=== PATIENT | female | born 1990 | race Caucasian/White ===

== ENCOUNTER 2018-06-24 18:21 | Emergency (ER) | payer OTHER ==
[2018-06-24 18:51] VITALS: O2SAT 96
--- NOTE | 2018-06-24 19:07 | ERPHSYRPT ---
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 states today she has increased headache more than her normal as well as blurry vision. states she "just doesn't feel well" Triage Nursing Assessment: pt is aox3, pt speech is appropriate, pt pupils are round and equal, pt pupils are minimally reactive to light, pt hand playroom attendant strong and equal, radial pulses strong and equal, pt afebrile, pt skin pale warm dry. Physician History: pt is 27 year old having been [facility] surgery and rad for pineal tumor completed last year , no shunt but prior hydroceph; some N no V disc margins look some indistinct to me on fundoscopic exam, so had best proceed with CT as could be papiledema. Timing/Duration: day(s), gradual onset Quality: fullness, pressure, throbbing Head Pain Location: global Severity of Pain-Max: moderate Severity of Pain-Current: moderate Recent Head Trauma: no recent headache/trauma Modifying Factors: Improves With: position Associated Symptoms: fatigue, nausea/vomiting, weakness Previous symptoms: same symptoms as today Allergies/Adverse Reactions: No Known Drug Allergies Allergy (Unverified 06/24/18 18:51) Hx Tetanus, Diphtheria Vaccination/Date Given: Yes Hx Influenza Vaccination/Date Given: Yes Hx Pneumococcal Vaccination/Date Given: No Immunizations Up to Date: Yes - Review of Systems Constitutional: Fatigue, Malaise, Weakness, No Fever, No Chills Eyes: No Symptoms Ears, Nose, & Throat: No Symptoms Respiratory: No Cough, No Dyspnea Cardiac: No Chest Pain, No Edema, No Syncope Abdominal/Gastrointestinal: Nausea, No Abdominal Pain, No Vomiting, No Diarrhea Genitourinary Symptoms: No Dysuria Musculoskeletal: Myalgias, No Back Pain, No Neck Pain Skin: No Rash Neurological: Headache, No Dizziness, No Focal Weakness, No Sensory Changes Psychological: No Symptoms Endocrine: No Symptoms All Other Systems: Reviewed and Negative - Past Medical History Pertinent Past Medical History: Yes Neurological History: Other Cardiac History: Hypertension Psycho-Social History: Anxiety, Depression Other Medical History: brain tumor. hydrocephalus. papilledema - Past Surgical History Past Surgical History: Yes Other Surgical History: brain biopsy. brain tumor removal - pineal - Social History Smoking Status: Current every day smoker Drug Use: none Patient Lives Alone: No - Female History Hx Last Menstrual Period: 06/02/18 Hx Now: No - Nursing Vital Signs Nursing Vital Signs: Initial Vital Signs Temperature 98.7 F 06/24/18 18:34 Pulse Rate 84 06/24/18 18:34 Respiratory Rate 20 06/24/18 18:34 Blood Pressure 138/91 06/24/18 18:34 O2 Sat by Pulse Oximetry 96 06/24/18 18:34 Pain Scale Pain Intensity 8 - Physical Exam General Appearance: no apparent distress Eye Exam: PERRL/EOMI, other (fundoscopic - disc margins seem indistinct. ) Ears, Nose, Throat Exam: normal ENT inspection, moist mucous membranes Neck Exam: normal inspection, supple, full range of motion, No meningismus Respiratory Exam: normal breath sounds, lungs clear Cardiovascular Exam: regular rate/rhythm, normal heart sounds Gastrointestinal/Abdominal Exam: soft, No tenderness, No distention Back Exam: normal inspection, normal range of motion Mental Status Exam: alert, 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, cooperative materials buyer Exam: normal speech, PERRL, No facial droop Coordination/Gait Exam: normal cerebellar function Motor/Sensory Exam: no motor deficit, no sensory deficit DTR Exam: bicep (R): 2+, bicep (L): 2+, tricep (R): 2+, tricep (L): 2+, knee (R) : 2+, knee (L): 2+, ankle (R): 2+, ankle (L): 2+ Skin Exam: normal color, warm, dry, No rash SpO2 Interpretation: normal SpO2: 96 Oxygen Delivery: Room Air - Course Nursing assessment & vital signs reviewed: Yes - CT Exams Head CT Interpretation: Tele-radiologist Report, No/Intracranial Hemorrhag, Other ( no hydrocephalus - normal ventricular size per rad) Ordered Tests: Active Orders 24 hr Category Date Time Status IV Insertion STAT Care 06/24/18 19:08 Active NPO (ED) STAT Care 06/24/18 19:08 Active HEAD WITHOUT CONTRAST [CT] Stat Exams 06/24/18 19:07 Taken CBC W DIFF Stat Lab 06/24/18 19:44 Completed CMP Stat Lab 06/24/18 19:44 Completed Erythrocyte Sedimentation Rate Stat Lab 06/24/18 19:44 Completed HCG QUALITATIVE,SERUM Stat Lab 06/24/18 19:44 Completed LIPASE Stat Lab 06/24/18 19:44 Completed Lactic Acid Stat Lab 06/24/18 19:37 Completed [place] Screen Stat Lab 06/24/18 19:44 Completed UA W/RFX UR CULTURE Stat Lab 06/24/18 20:24 Completed Medication Summary Generic Name Dose Route Start Last Admin Trade Name Freq PRN Reason Stop Dose Admin Sodium Chloride 1,000 mls @ 100 mls/hr 06/24/18 19:15 06/24/18 19:38 Sodium Chloride 0.9% 1000 Ml IV 07/24/18 19:14 100 mls/hr .Q10H KEELY Administration Discontinued Medications Generic Name Dose Route Start Last Admin Trade Name Freq PRN Reason Stop Dose Admin Lorazepam 0.5 mg 06/24/18 19:17 06/24/18 19:28 Ativan 0.5 Mg PO 06/24/18 19:18 0.5 mg STAT ONE Administration Lorazepam Confirm 06/24/18 19:26 Ativan 1 Mg Administered 06/24/18 19:27 Dose 1 mg .ROUTE .STK-MED ONE Nitroglycerin 0.4 mg 06/24/18 19:11 06/24/18 19:39 Nitrostat 0.4 Mg (Ed) SL 06/24/18 19:12 Not Given STAT ONE Lab/Rad Data: Laboratory Result Diagrams 06/24/18 19:44 06/24/18 19:44 Laboratory Results 06/24/18 06/24/18 06/24/18 Range/Units 20:24 19:45 19:44 WBC (4.0-10.5) K/mm3 RBC (4.1-5.4) M/mm3 Hgb (12.0-16.0) gm/dl Hct (35-47) % MCV (78-100) fl MCH (26-32) pg MCHC (32-36) g/dl RDW (11.5-14.0) % Plt Count (150-450) K/mm3 MPV (6-9.5) fl Gran % (36.0-66.0) % Eos # (Auto) (0-0.5) Absolute Lymphs (auto) (1.0-4.6) Absolute Monos (auto) (0.0-1.3) Lymphocytes % (24.0-44.0) % Monocytes % (0.0-12.0) % Eosinophils % (0.00-5.0) % Basophils % (0.0-0.4) % Absolute Granulocytes (1.4-6.9) Basophils # (0-0.4) ESR (0-20) mm/hr Sodium (137-145) mmol/L Potassium (3.5-5.1) mmol/L Chloride (98-107) mmol/L Carbon Dioxide (22-30) mmol/L Anion Gap (5-15) MEQ/L BUN (7-17) mg/dL Creatinine (0.52-1.04) mg/dL Estimated GFR ML/MIN Glucose (74-106) mg/dL Lactic Acid (0.4-2.0) Calcium (8.4-10.2) mg/dL Total Bilirubin (0.2-1.3) mg/dL AST (14-36) U/L ALT (0-35) U/L Alkaline Phosphatase (38-126) U/L Serum Total Protein (6.3-8.2) g/dL Albumin (3.5-5.0) g/dL Lipase (23-300) U/L Serum , Qual NEGATIVE (Negative) Ur Collection Type VOID Urine Color YELLOW (YELLOW) Urine Appearance CLEAR (CLEAR) Urine pH 5.0 (5-6) Ur Specific Eros 1.020 (1.005-1.025) Urine Protein NEGATIVE (Negative) Urine Ketones NEGATIVE (NEGATIVE) Urine Blood NEGATIVE (0-5) Hermes/ul Urine Nitrite NEGATIVE (NEGATIVE) Urine Bilirubin NEGATIVE (NEGATIVE) Urine Urobilinogen NORMAL (0-1) mg/dL Ur Leukocyte Esterase NEGATIVE (NEGATIVE) Urine Culture Reflexed NO (NO) Urine Glucose NEGATIVE (NEGATIVE) mg/dL Monoscreen NEGATIVE (Negative) Influenza Type A Ag NEGATIVE (NEGATIVE) Influenza Type B Ag NEGATIVE (NEGATIVE) RSV (PCR) NEGATIVE (Negative) Group A Strep Antibody NEGATIVE (NEGATIVE) Specimen Received 06/24/18201906/24/18 06/24/18 06/24/18 Range/Units 19:44 19:44 19:37 WBC 7.3 (4.0-10.5) K/mm3 RBC 4.76 (4.1-5.4) M/mm3 Hgb 14.1 (12.0-16.0) gm/dl Hct 41.6 (35-47) % MCV 87.4 (78-100) fl MCH 29.6 (26-32) pg MCHC 33.9 (32-36) g/dl RDW 14.8 H (11.5-14.0) % Plt Count 315 (150-450) K/mm3 MPV 10.5 H (6-9.5) fl Gran % 58.4 (36.0-66.0) % Eos # (Auto) 0.15 (0-0.5) Absolute Lymphs (auto) 2.41 (1.0-4.6) Absolute Monos (auto) 0.48 (0.0-1.3) Lymphocytes % 32.8 (24.0-44.0) % Monocytes % 6.5 (0.0-12.0) % Eosinophils % 2.0 (0.00-5.0) % Basophils % 0.3 (0.0-0.4) % Absolute Granulocytes 4.28 (1.4-6.9) Basophils # 0.02 (0-0.4) ESR 10 (0-20) mm/hr Sodium 140 (137-145) mmol/L Potassium 4.2 (3.5-5.1) mmol/L Chloride 105 (98-107) mmol/L Carbon Dioxide 25 (22-30) mmol/L Anion Gap 14.3 (5-15) MEQ/L BUN 18 H (7-17) mg/dL Creatinine 0.73 (0.52-1.04) mg/dL Estimated GFR > 60.0 ML/MIN Glucose 94 (74-106) mg/dL Lactic Acid 0.8 (0.4-2.0) Calcium 10.5 H (8.4-10.2) mg/dL Total Bilirubin 0.20 (0.2-1.3) mg/dL AST 17 (14-36) U/L ALT 25 (0-35) U/L Alkaline Phosphatase 103 (38-126) U/L Serum Total Protein 7.6 (6.3-8.2) g/dL Albumin 4.7 (3.5-5.0) g/dL Lipase 129 (23-300) U/L Serum , Qual (Negative) Ur Collection Type Urine Color (YELLOW) Urine Appearance (CLEAR) Urine pH (5-6) Ur Specific Eros (1.005-1.025) Urine Protein (Negative) Urine Ketones (NEGATIVE) Urine Blood (0-5) Hermes/ul Urine Nitrite (NEGATIVE) Urine Bilirubin (NEGATIVE) Urine Urobilinogen (0-1) mg/dL Ur Leukocyte Esterase (NEGATIVE) Urine Culture Reflexed (NO) Urine Glucose (NEGATIVE) mg/dL Monoscreen (Negative) Influenza Type A Ag (NEGATIVE) Influenza Type B Ag (NEGATIVE) RSV (PCR) (Negative) Group A Strep Antibody (NEGATIVE) Specimen Received - Progress Progress: improved, re-examined Air Movement: good Progress Note: 06/24/18 19:14 discussed risk and benefit of CT including rad , alternative imaging/transfer, and pt /family wish to proceed since feeling very ill, they deny but will proceed with shielding 06/24/18 20:57 pt asympt in ER and roxie PO challenge and after discussion wishes f/u neuro as planned this week with MRI and will return meantim if symptoms recur. Blood Culture(s) Obtained: No Antibiotics given: No Counseled pt/family regarding: lab results, diagnosis, need for follow-up, rad results - Departure Time of Disposition: 20:58 Departure Disposition: Home Clinical Impression: headache -post pineal tumor Condition: Good Critical Care Time: No Referrals: ESTHER PROCTOR [NON-STAFF PHY W/O PRIVILEGES] - Instructions: Headache, Adult (DC), Hydrocephalus (DC) Additional Instructions: although the CT did not show hydrocephalus signs , there still could be a very early hydrocephalus trying to develop so we are providing those instructions . return meantime if any symptoms of concern and keep appointments this week as planned with your neuro doctors and MRI.
[2018-06-24] MEDS ORDERED: Nitrostat 0.4 MG (ED) SL ONE (19:11)
[2018-06-24] MEDS ORDERED: Sodium Chloride 0.9% 1000 ML 1,000 ML IV SCH (19:15)
[2018-06-24] MEDS ORDERED: Ativan 0.5 MG PO ONE (19:17)
[2018-06-24] MEDS ORDERED: Sodium Chloride 0.9% 1000 ML 1,000 ML ONE (19:26)
[2018-06-24] MEDS ORDERED: Ativan 1 MG ONE (19:26)
[2018-06-24 19:48] LABS: BASOPHIL % 0.3 % (0.0-0.4); Basophil (Absolute #) 0.02 (0-0.4); Eosinophil (Absolute #) 0.15 (0-0.5); Granulocyte Absolute (ANC) 4.28 (1.4-6.9); Granulocytes % 58.4 % (36.0-66.0); Hematocrit 41.6 % (35-47); Hemoglobin 14.1 gm/dl (12.0-16.0); Lymphocyte (Absolute #) 2.41 (1.0-4.6); Lymphocytes % 32.8 % (24.0-44.0); Mean Cell Volume 87.4 fl (78-100); Mean Corpuscular Hemoglobin 29.6 pg (26-32); Mean Corpuscular Hgb Concent. 33.9 g/dl (32-36); Mean Platelet Volume 10.5 fl (6-9.5); Monocyte (Absolute #) 0.48 (0.0-1.3); Monocytes % 6.5 % (0.0-12.0); Platelet Count 315 K/mm3 (150-450); Red Blood Count 4.76 M/mm3 (4.1-5.4); Red Cell Distribution Width 14.8 % (11.5-14.0); White Blood Count 7.3 K/mm3 (4.0-10.5)
[2018-06-24 20:09] LABS: ALBUMIN 4.7 g/dL (3.5-5.0); ALKALINE PHOSPHATASE 103 U/L (38-126); ANION GAP 14.3 MEQ/L (5-15); BLOOD UREA NITROGEN 18 mg/dL (7-17); CHLORIDE 105 mmol/L (98-107); Calcium 10.5 mg/dL (8.4-10.2); Carbon Dioxide 25 mmol/L (22-30); Creatinine 1 0.73 mg/dL (0.52-1.04); Glucose 94 mg/dL (74-106); LIPASE 129 U/L (23-300); Potassium 4.2 mmol/L (3.5-5.1); SGOT/AST 17 U/L (14-36); SGPT/ALT 25 U/L (0-35); SODIUM 140 mmol/L (137-145); Total Protein 7.6 g/dL (6.3-8.2)
[2018-06-24 20:17] LABS: HCG QUALITATIVE,SERUM NEGATIVE (Negative); Mono Screen NEGATIVE (Negative)
[2018-06-24 20:36] LABS: Erythrocyte Sedimentation Rate 10 mm/hr (0-20)
[2018-06-24 20:37] LABS: INFLUENZA A NEGATIVE (NEGATIVE); INFLUENZA B NEGATIVE (NEGATIVE); RESPIRATORY SYNCTIAL VIRUS NEGATIVE (Negative)
[2018-06-24 20:47] LABS: Appearance CLEAR (CLEAR); Bilirubin NEGATIVE (NEGATIVE); Blood NEGATIVE Ery/ul (0-5); Glucose NEGATIVE (NEGATIVE); Ketones NEGATIVE (NEGATIVE); Leukocyte Esterase NEGATIVE (NEGATIVE); Nitrite NEGATIVE (NEGATIVE); Protein,Urine Dip NEGATIVE (Negative); Urobilinogen NORMAL mg/dL (0-1)
[2018-06-24 21:23] VITALS: BP 124/64; PULSE 70
--- NOTE | 2018-06-24 21:38 | XRAY ---
Indication: Patient feels unwell. History pineal tumor with surgery. Multiple contiguous axial images obtained through the head without contrast. Comparison: None. Small remote appearing lacunar infarcts in the basal ganglia bilaterally and adjacent to the right frontal horn. No acute intracranial hemorrhage, abnormal extra-axial fluid collection, or mass effect. Slightly irregular pineal calcifications presumed previous treated pineal lesion. Bony calvarium intact with left occipital craniotomy. Visualized paranasal sinuses and mastoid air cells are clear. Impression: Small bilateral remote lacunar infarcts and postsurgical as detailed. No acute intracranial abnormalities. Comment: Preliminary interpretation was made by C. No discrepancy. CTDI 68.81
== END 2018-06-24 21:23 | disposition home or self-care (01) ==
LOC: ED 18:21
DX: R51 Headache (principal); R53.83 Other fatigue; R53.1 Weakness; R11.2 Nausea with vomiting, unspecified; Z98.890 Other specified postprocedural states
CPT/HCPCS: 36000; 36415; 70450; 80053; 81002; 83605; 83690; 84703; 85025; 85652; 86308; 87631; 87651; 96360; 96361; 99284; A9270-GY

== ENCOUNTER 2018-07-01 13:34 | Emergency (ER) | payer OTHER ==
[2018-07-01] MEDS ORDERED: MORPHINE SULFATE 4 MG INJ IM ONE (13:55)
[2018-07-01] MEDS ORDERED: Phenergan 25 MG INJ IM ONE (13:55)
--- NOTE | 2018-07-01 14:01 | ERPHSYRPT ---
- History of Present Illness Time Seen by Provider: 07/01/18 13:56 Source: patient Exam Limitations: no limitations Patient Subjective Stated Complaint: pt here for a headache since 1200 today, nausea. pt is getting radiation for brain tumor started radiation in february. having had heacaches for 2 weeks, has called apt last . aug 2017 had 85% % of tumor removed Triage Nursing Assessment: pt alert, resp easy, skin w/d/p. tearful, and states she is going through stress as well , resp easy Physician History: 27-year-old white female arrives with complaint of headache frontal since noon states she is nauseous. No fevers. Patient does state that she has a history of a brain tumor removed in the past she has had radiation treatment last treatment was in February patient was seen last week with the same complaints head CT no acute changes. Patient was seen by her neurologist several days ago. Past medical history includes anxiety, depression, high blood pressure, hydrocephalus, papilledema Past surgical history includes brain biopsy and brain tumor removed Social history positive tobacco use. Timing/Duration: today (today at noon) Severity: moderate Modifying Factors: Improves With: nothing Associated Symptoms: nausea, No vomiting, No abdominal pain, No shortness of breath, No heartburn, No diaphoresis, No cough, No chills, No chest pain, No fever, No headaches, No loss of appetite, No malaise, No rash, No syncope, No seizure, No weakness Allergies/Adverse Reactions: No Known Drug Allergies Allergy (Verified 07/01/18 13:46) Home Medications: No Reportable Medications [No Reported Medications] 07/01/18 [History] Hx Tetanus, Diphtheria Vaccination/Date Given: Yes Hx Influenza Vaccination/Date Given: No Hx Pneumococcal Vaccination/Date Given: No Immunizations Up to Date: Yes - Review of Systems Eyes: No Symptoms Ears, Nose, & Throat: No Symptoms Respiratory: No Cough, No Dyspnea Cardiac: No Chest Pain, No Edema, No Syncope Abdominal/Gastrointestinal: Nausea, No Abdominal Pain, No Vomiting, No Diarrhea , No Constipation, No Hematemesis, No Hematochezia, No Melena, No Dysphagia, No Appetite Changes Genitourinary Symptoms: No Dysuria Musculoskeletal: No Back Pain, No Neck Pain Skin: No Rash Neurological: Headache Psychological: No Symptoms Endocrine: No Symptoms All Other Systems: Reviewed and Negative - Past Medical History Pertinent Past Medical History: Yes Neurological History: Other Cardiac History: Hypertension Psycho-Social History: Anxiety, Depression Other Medical History: brain tumor. hydrocephalus. papilledema - Past Surgical History Past Surgical History: Yes Other Surgical History: brain biopsy. brain tumor removal - pineal - Social History Smoking Status: Current every day smoker Exposure to second hand smoke: Yes Drug Use: none Patient Lives Alone: No - Female History Hx Last Menstrual Period: june 02 Hx Now: No - Nursing Vital Signs Nursing Vital Signs: Initial Vital Signs Temperature 98.2 F 07/01/18 13:38 Pulse Rate 101 H 07/01/18 13:38 Respiratory Rate 16 07/01/18 13:38 Blood Pressure 145/88 07/01/18 13:38 O2 Sat by Pulse Oximetry 98 07/01/18 13:38 Pain Scale Pain Intensity 8 - Physical Exam General Appearance: mild distress Eye Exam: PERRL/EOMI, eyes nml inspection Ears, Nose, Throat Exam: normal ENT inspection, TMs normal, pharynx normal, moist mucous membranes Neck Exam: normal inspection, non-tender, supple, full range of motion Respiratory Exam: normal breath sounds, lungs clear, No respiratory distress Cardiovascular Exam: regular rate/rhythm, normal heart sounds, normal peripheral pulses Gastrointestinal/Abdomen Exam: soft, normal bowel sounds, No tenderness, No mass Back Exam: normal inspection, normal range of motion, No CVA tenderness, No vertebral tenderness Extremity Exam: normal inspection, normal range of motion, pelvis stable Neurologic Exam: alert, 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, cooperative, platform engineer II-XII nml as tested, normal mood/affect, nml cerebellar function, nml station & gait, sensation nml, No motor deficits Skin Exam: normal color, warm, dry, No rash SpO2 Interpretation: normal (98%) SpO2: 98 Oxygen Delivery: Room Air - Course Nursing assessment & vital signs reviewed: Yes Ordered Tests: Active Orders 24 hr Category Date Time Status ARTERIAL BLOOD GASES Stat Lab 07/01/18 13:47 Stop Req Medication Summary Discontinued Medications Generic Name Dose Route Start Last Admin Trade Name Freq PRN Reason Stop Dose Admin Morphine Sulfate 4 mg 07/01/18 13:55 07/01/18 14:12 Morphine Sulfate 4 Mg Inj IM 07/01/18 13:56 4 mg STAT ONE Administration Morphine Sulfate Confirm 08/18/18 14:04 Morphine Sulfate 4 Mg Inj Administered 07/01/18 14:05 Dose 4 mg .ROUTE .STK-MED ONE Promethazine HCl 25 mg 07/01/18 13:55 07/01/18 14:13 Phenergan 25 Mg Inj IM 07/01/18 13:56 25 mg STAT ONE Administration Promethazine HCl Confirm 07/01/18 14:04 Phenergan 25 Mg Inj Administered 07/01/18 14:05 Dose 25 mg .ROUTE .STK-MED ONE - Progress Progress: improved Progress Note: 07/01/18 13:59 27-year-old white female with history of anxiety depression high blood pressure hydrocephaly papilledema who has had a brain tumor in the past which was removed and had had radiation treatment. Patient arrives with a headache since noon she has some nausea no vomiting no fevers. Patient seen here a week ago for headache head CT no acute changes. Patient saw her neurologist several days ago. Patient appears to be stable Will go ahead and give patient morphine and Phenergan. 07/01/18 14:59 Patient is feeling better after morphine 4 mg Phenergan 25 mg IM. Will go ahead and discharge patient. Patient to follow-up with her family doctor and/or her neurologist. - Departure Time of Disposition: 15:00 Departure Disposition: Home Clinical Impression: Headache Qualifiers: Headache type: unspecified Headache chronicity pattern: acute headache Intractability: not intractable Qualified Code(s): R51 - Headache Condition: Fair Critical Care Time: No Referrals: GLORIA PERALTA [Primary Care Provider] - Additional Instructions: Return home. Rest in a dark quiet room. Follow-up with your family doctor or your neurologist. Return for acute distress or for severe symptoms.
[2018-07-01] MEDS ORDERED: MORPHINE SULFATE 4 MG INJ ONE (14:04)
[2018-07-01] MEDS ORDERED: Phenergan 25 MG INJ ONE (14:04)
[2018-07-01 15:06] VITALS: BP 105/62; PULSE 80; O2SAT 96
== END 2018-07-01 15:06 | disposition home or self-care (01) ==
LOC: ED 13:34
DX: R51 Headache (principal); D49.6 Neoplasm of unspecified behavior of brain; F41.8 Other specified anxiety disorders; I10 Essential (primary) hypertension; Z79.899 Other long term (current) drug therapy; Z72.0 Tobacco use
CPT/HCPCS: 96372; 99284; J2270; J2550

== ENCOUNTER 2018-10-24 19:35 | Emergency (ER) | payer OTHER ==
--- NOTE | 2018-10-24 20:17 | ERPHSYRPT ---
- History of Present Illness Time Seen by Provider: 10/24/18 20:00 Source: patient Exam Limitations: no limitations Physician History: 27 y/o white female with no cardiac hx but with h/o migraines presents with a few hour h/o first migraine followed by chest pain. 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 she does have anxiety issues and is under a lot of stress. Timing/Duration: today Quality: sharpness, stabbing (left ) Head Pain Location: global Severity of Pain-Max: moderate Severity of Pain-Current: moderate Recent Head Trauma: no recent headache/trauma, frequent headaches Modifying Factors: Worsens With: cold therapy, exposure to light, immobilization , medication, movement Associated Symptoms: No confusion, No dizziness, No facial pain, No light- headedness, No loss of consciousness, No nausea/vomiting, No sensitive to light , No vision changes Previous symptoms: no prior history (of chest pain) Allergies/Adverse Reactions: No Known Drug Allergies Allergy (Verified 07/01/18 13:46) Home Medications: Alprazolam 0.25 mg [xanAX 0.25 MG] 0.5 mg PO DAILY 10/24/18 [History] Topiramate 25 mg [Topamax 25 MG] 50 mg PO BID 10/24/18 [History] Hx Tetanus, Diphtheria Vaccination/Date Given: Yes Hx Influenza Vaccination/Date Given: No Hx Pneumococcal Vaccination/Date Given: No - Review of Systems Constitutional: No Symptoms, No Fever Eyes: No Symptoms, No Eye Pain, No Photophobia, No Vision Changes, No Double Vision Ears, Nose, & Throat: No Symptoms Respiratory: No Symptoms, No Cough, No Dyspnea, No Stridor Cardiac: No Symptoms, No Chest Pain, No Edema, No Palpitations, No Syncope Abdominal/Gastrointestinal: No Symptoms, No Abdominal Pain, No Nausea, No Vomiting, No Diarrhea Genitourinary Symptoms: No Symptoms, No Dysuria, No Frequency, No Hematuria Musculoskeletal: No Symptoms Skin: No Symptoms Neurological: Headache Psychological: No Symptoms Endocrine: No Symptoms Hematologic/Lymphatic: No Symptoms Immunological/Allergic: No Symptoms All Other Systems: Reviewed and Negative - Past Medical History Pertinent Past Medical History: Yes Neurological History: Other ENT History: No Pertinent History Cardiac History: No Pertinent History, Hypertension Respiratory History: No Pertinent History Endocrine Medical History: No Pertinent History Musculoskeletal History: No Pertinent History GI Medical History: No Pertinent History History: No Pertinent History Psycho-Social History: Anxiety, Depression Female Reproductive Disorders: No Pertinent History Other Medical History: brain tumor. hydrocephalus. papilledema - Past Surgical History Past Surgical History: Yes Neuro Surgical History: No Pertinent History Cardiac: No Pertinent History Respiratory: No Pertinent History Gastrointestinal: No Pertinent History Genitourinary: No Pertinent History Musculoskeletal: No Pertinent History Female Surgical History: No Pertinent History Other Surgical History: brain biopsy. brain tumor removal - pineal - Social History Smoking Status: Current every day smoker Exposure to second hand smoke: Yes Drug Use: none Patient Lives Alone: No - Nursing Vital Signs Nursing Vital Signs: Initial Vital Signs Temperature 98.9 F 10/24/18 19:36 Pulse Rate 82 10/24/18 19:36 Respiratory Rate 20 10/24/18 19:36 Blood Pressure 141/91 10/24/18 19:36 O2 Sat by Pulse Oximetry 99 10/24/18 19:36 Pain Scale Pain Intensity 8 - Physical Exam General Appearance: no apparent distress, alert, anxiety Eye Exam: PERRL/EOMI, eyes nml inspection Ears, Nose, Throat Exam: normal ENT inspection, moist mucous membranes Neck Exam: normal inspection, non-tender, supple, full range of motion Respiratory Exam: normal breath sounds, chest tenderness, airway intact, No lungs clear, No respiratory distress, No accessory muscle use, No rhonchi, No wheezing, No stridor Cardiovascular Exam: regular rate/rhythm, normal heart sounds, normal peripheral pulses Gastrointestinal/Abdominal Exam: soft, normal bowel sounds, No tenderness, No guarding, No rebound Back Exam: normal inspection, normal range of motion, No CVA tenderness, No vertebral tenderness Extremity Exam: normal inspection, normal range of motion, pelvis stable Mental Status Exam: alert, 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, 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 Exam: normal hearing, normal speech, PERRL Coordination/Gait Exam: normal finger to nose, normal gait Motor/Sensory Exam: no motor deficit, no sensory deficit Skin Exam: normal color, warm, dry Lymphatic Exam: No adenopathy SpO2 Interpretation: normal Oxygen Delivery: Room Air - Course Nursing assessment & vital signs reviewed: Yes EKG Interpreted by Me: RATE (78), Sinus Rhythm, NORMAL AXIS, NORMAL INTERVALS, NORMAL QRS, Non-specific ST Changes Ordered Tests: Active Orders 24 hr Category Date Time Status Supervisor Grips STAT Care 10/24/18 20:33 Active EKG-ER Only STAT Care 10/24/18 20:33 Active IV Insertion STAT Care 10/24/18 20:33 Active Pulse Oximetry (ED) STAT Care 10/24/18 20:33 Active BMP Stat Lab 10/24/18 20:55 Completed CBC W DIFF Stat Lab 10/24/18 20:55 Completed TROPONIN Q3H Lab 10/24/18 20:55 Completed TROPONIN Q3H Lab 10/24/18 23:45 Ordered TROPONIN Q3H Lab 10/25/18 02:45 Ordered TROPONIN Q3H Lab 10/25/18 05:45 Ordered TROPONIN Q3H Lab 10/25/18 08:45 Ordered Medication Summary Discontinued Medications Generic Name Dose Route Start Last Admin Trade Name Freq PRN Reason Stop Dose Admin Aspirin 324 mg 10/24/18 20:33 10/24/18 21:03 Baby Aspirin 81 Mg Chew PO 10/24/18 20:34 324 mg STAT ONE Administration Aspirin Confirm 10/24/18 20:50 Baby Aspirin 81 Mg Chew Administered 10/24/18 20:51 Dose 324 mg .ROUTE .STK-MED ONE Morphine Sulfate 4 mg 10/24/18 20:33 10/24/18 21:04 Morphine Sulfate 4 Mg Inj IV 10/24/18 20:34 4 mg STAT ONE Administration Morphine Sulfate Confirm 10/24/18 20:50 Morphine Sulfate 4 Mg Inj Administered 10/24/18 20:51 Dose 4 mg .ROUTE .STK-MED ONE Ondansetron HCl 4 mg 10/24/18 20:33 10/24/18 21:04 Zofran 4 Mg/2 Ml Vial IV 10/24/18 20:34 4 mg STAT ONE Administration Ondansetron HCl Confirm 10/24/18 20:50 Zofran 4 Mg/2 Ml Vial Administered 10/24/18 20:51 Dose 4 mg .ROUTE .STK-MED ONE Lab/Rad Data: Laboratory Result Diagrams 10/24/18 20:55 10/24/18 20:55 Laboratory Results 10/24/18 10/24/18 10/24/18 Range/Units 20:55 20:55 20:55 WBC 7.6 (4.0-10.5) K/mm3 RBC 4.47 (4.1-5.4) M/mm3 Hgb 13.3 (12.0-16.0) gm/dl Hct 40.9 (35-47) % MCV 91.5 (78-100) fl MCH 29.8 (26-32) pg MCHC 32.5 (32-36) g/dl RDW 13.5 (11.5-14.0) % Plt Count 293 (150-450) K/mm3 MPV 9.8 H (6-9.5) fl Gran % 53.4 (36.0-66.0) % Eos # (Auto) 0.16 (0-0.5) Absolute Lymphs (auto) 2.74 (1.0-4.6) Absolute Monos (auto) 0.62 (0.0-1.3) Lymphocytes % 36.0 (24.0-44.0) % Monocytes % 8.1 (0.0-12.0) % Eosinophils % 2.1 (0.00-5.0) % Basophils % 0.4 (0.0-0.4) % Absolute Granulocytes 4.07 (1.4-6.9) Basophils # 0.03 (0-0.4) Sodium 139 (137-145) mmol/L Potassium 4.2 (3.5-5.1) mmol/L Chloride 102 (98-107) mmol/L Carbon Dioxide 28 (22-30) mmol/L Anion Gap 12.8 (5-15) MEQ/L BUN 12 (7-17) mg/dL Creatinine 0.77 (0.52-1.04) mg/dL Estimated GFR > 60.0 ML/MIN Glucose 94 (74-106) mg/dL Calcium 9.7 (8.4-10.2) mg/dL Troponin I < 0.012 (0.000-0.034) ng/mL - Progress Progress: improved Air Movement: good Progress Note: 10/24/18 21:45 denies cp and headache. Counseled pt/family regarding: lab results, diagnosis, need for follow-up - Departure Time of Disposition: 21:45 Departure Disposition: Home Clinical Impression: Migraine, Chest pain Condition: Stable Critical Care Time: No Referrals: GLORIA PERALTA [Primary Care Provider] - Additional Instructions: follow up with primary doctor for further management
[2018-10-24] MEDS ORDERED: BABY ASPIRIN 81 MG CHEW PO ONE (20:33)
[2018-10-24] MEDS ORDERED: MORPHINE SULFATE 4 MG INJ IV ONE (20:33)
[2018-10-24] MEDS ORDERED: Zofran 4 MG/2 ML VIAL IV ONE (20:33)
[2018-10-24] MEDS ORDERED: MORPHINE SULFATE 4 MG INJ ONE (20:50)
[2018-10-24] MEDS ORDERED: BABY ASPIRIN 81 MG CHEW ONE (20:50)
[2018-10-24] MEDS ORDERED: Zofran 4 MG/2 ML VIAL ONE (20:50)
[2018-10-24 21:00] LABS: BASOPHIL % 0.4 % (0.0-0.4); Basophil (Absolute #) 0.03 (0-0.4); Eosinophil % 2.1 % (0.00-5.0); Eosinophil (Absolute #) 0.16 (0-0.5); Granulocyte Absolute (ANC) 4.07 (1.4-6.9); Granulocytes % 53.4 % (36.0-66.0); Hematocrit 40.9 % (35-47); Hemoglobin 13.3 gm/dl (12.0-16.0); Lymphocyte (Absolute #) 2.74 (1.0-4.6); Mean Cell Volume 91.5 fl (78-100); Mean Corpuscular Hemoglobin 29.8 pg (26-32); Mean Corpuscular Hgb Concent. 32.5 g/dl (32-36); Mean Platelet Volume 9.8 fl (6-9.5); Monocyte (Absolute #) 0.62 (0.0-1.3); Monocytes % 8.1 % (0.0-12.0); Platelet Count 293 K/mm3 (150-450); Red Blood Count 4.47 M/mm3 (4.1-5.4); Red Cell Distribution Width 13.5 % (11.5-14.0); White Blood Count 7.6 K/mm3 (4.0-10.5)
[2018-10-24 21:08] VITALS: O2SAT 100
[2018-10-24 21:20] LABS: ANION GAP 12.8 MEQ/L (5-15); BLOOD UREA NITROGEN 12 mg/dL (7-17); CHLORIDE 102 mmol/L (98-107); Calcium 9.7 mg/dL (8.4-10.2); Carbon Dioxide 28 mmol/L (22-30); Creatinine 1 0.77 mg/dL (0.52-1.04); Glucose 94 mg/dL (74-106); Potassium 4.2 mmol/L (3.5-5.1); SODIUM 139 mmol/L (137-145)
[2018-10-24 22:02] VITALS: BP 113/74; PULSE 80
== END 2018-10-24 22:07 | disposition home or self-care (01) ==
LOC: ED 19:35
DX: G43.909 Migraine, unspecified, not intractable, without status migrainosus (principal); R07.9 Chest pain, unspecified; Z79.899 Other long term (current) drug therapy
CPT/HCPCS: 36000; 36415; 80048; 84484; 85025; 93005; 93041; 96374; 99284; J2270; J2405; A9270-GY

== ENCOUNTER 2018-11-07 15:57 | Emergency (ER) | payer OTHER ==
--- NOTE | 2018-11-07 17:21 | ERPHSYRPT ---
- History of Present Illness Time Seen by Provider: 11/07/18 17:10 Source: patient Exam Limitations: no limitations Patient Subjective Stated Complaint: headache with ringing ears, dizzy Triage Nursing Assessment: Pt states that she has had a headache all day and has felt dizzy, hx of brain tumor and brain surgery, hx of seizures, denies seizure today, vitals wnl, PERRL, no difficulties with strength, N&V Physician History: The patient is a 28-year-old female with her parents complaining of severe weekly global headaches for the last 5 or 6 months. Today she also vomited with the headache. She knew it was going to be a severe headache because last night her left arm and hand were numb and tingly. Every time her hand and arm are numb and tingly she has a severe headache. She also has seizures sometimes once a week and sometimes less frequent. She's had 2 brain surgeries one in 2015 and 2017. This headache does not seem to be any different than prior headaches. She is here because she has vomited and the headache frequency is becoming sooner and sooner. She had a head MRI 3 months ago that showed a stable brain. She wants to call her neurologist tomorrow. She denies facial droop or eye problems. Timing/Duration: today, sudden Quality: sharpness Head Pain Location: global Severity of Pain-Max: severe Severity of Pain-Current: severe Recent Head Trauma: frequent headaches Associated Symptoms: nausea/vomiting, No light-headedness, No loss of consciousness, No sinus infection, No sensitive to light, No vision changes, No visual disturbance Previous symptoms: same symptoms as today, recently seen Allergies/Adverse Reactions: morphine Adverse Reaction (Verified 11/07/18 16:35) Home Medications: No Reportable Medications [No Reported Medications] 11/07/18 [History] Hx Tetanus, Diphtheria Vaccination/Date Given: Yes Hx Influenza Vaccination/Date Given: No Hx Pneumococcal Vaccination/Date Given: No - Review of Systems Constitutional: No Fever, No Chills Eyes: No Symptoms Ears, Nose, & Throat: No Symptoms Respiratory: No Cough, No Dyspnea Cardiac: No Chest Pain, No Edema, No Syncope Abdominal/Gastrointestinal: Nausea, Vomiting, No Abdominal Pain, No Diarrhea Genitourinary Symptoms: No Dysuria Musculoskeletal: No Back Pain, No Neck Pain Skin: No Rash Neurological: Headache Psychological: No Symptoms Endocrine: No Symptoms Hematologic/Lymphatic: No Symptoms Immunological/Allergic: No Symptoms All Other Systems: Reviewed and Negative - Past Medical History Pertinent Past Medical History: Yes Neurological History: Other ENT History: No Pertinent History Cardiac History: No Pertinent History, Hypertension Respiratory History: No Pertinent History Endocrine Medical History: No Pertinent History Musculoskeletal History: No Pertinent History GI Medical History: No Pertinent History History: No Pertinent History Psycho-Social History: Anxiety, Depression Female Reproductive Disorders: No Pertinent History Other Medical History: brain tumor. hydrocephalus. papilledema - Past Surgical History Past Surgical History: Yes Neuro Surgical History: No Pertinent History Cardiac: No Pertinent History Respiratory: No Pertinent History Gastrointestinal: No Pertinent History Genitourinary: No Pertinent History Musculoskeletal: No Pertinent History Female Surgical History: No Pertinent History Other Surgical History: brain biopsy. brain tumor removal - pineal - Social History Smoking Status: Current every day smoker How long have you smoked: 12 years Exposure to second hand smoke: Yes Drug Use: none Patient Lives Alone: No - Female History Hx Now: No (tubal) - Nursing Vital Signs Nursing Vital Signs: Initial Vital Signs Temperature 97.8 F 11/07/18 16:18 Pulse Rate 98 H 11/07/18 16:18 Blood Pressure 121/63 11/07/18 16:18 O2 Sat by Pulse Oximetry 98 11/07/18 16:18 Pain Scale Pain Intensity 8 - Physical Exam General Appearance: moderate distress Eye Exam: PERRL/EOMI Ears, Nose, Throat Exam: normal ENT inspection, moist mucous membranes Neck Exam: normal inspection, supple, full range of motion, No meningismus Respiratory Exam: normal breath sounds, lungs clear Cardiovascular Exam: regular rate/rhythm, normal heart sounds Gastrointestinal/Abdominal Exam: soft, No tenderness, No distention Back Exam: normal inspection, normal range of motion Extremity Exam: normal inspection Mental Status Exam: alert, 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, 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 Exam: normal speech, PERRL, tongue midline, No facial droop, No hearing deficit (R), No hearing deficit (L), No tongue deviation to R Coordination/Gait Exam: normal cerebellar function Motor/Sensory Exam: no motor deficit, no sensory deficit Skin Exam: normal color, warm, dry, No rash SpO2 Interpretation: normal SpO2: 98 Oxygen Delivery: Room Air - CT Exams Head CT Interpretation: Tele-radiologist Report (per Dr Oswald), Other (unchanged hyperdense soft tissue and calcifications in pineal region.) Ordered Tests: Active Orders 24 hr Category Date Time Status IV Insertion STAT Care 11/07/18 17:25 Active HEAD WITHOUT CONTRAST [CT] Stat Exams 11/07/18 17:26 Taken BMP Stat Lab 11/07/18 17:55 Completed CBC W DIFF Stat Lab 11/07/18 17:55 Completed Lactic Acid Urgent Lab 11/07/18 17:53 Completed Medication Summary Discontinued Medications Generic Name Dose Route Start Last Admin Trade Name Awais PRN Reason Stop Dose Admin Sodium Chloride 1,000 mls @ 999 mls/hr 11/07/18 17:25 11/07/18 18:11 Sodium Chloride 0.9% 1000 Ml IV 11/07/18 18:25 999 mls/hr .Q1H1M STA Administration Sodium Chloride Confirm 11/07/18 18:06 Sodium Chloride 0.9% 1000 Ml Administered 11/07/18 18:07 Dose 1,000 mls @ ud .ROUTE .STK-MED ONE Nalbuphine HCl 10 mg 11/07/18 17:25 11/07/18 18:11 Nalbuphine Hcl 10 Mg/1 Ml Injection IV 11/07/18 17:26 10 mg STAT STA Administration Nalbuphine HCl Confirm 11/07/18 18:06 Nubain 10 Mg/Ml Administered 11/07/18 18:07 Dose 10 mg .ROUTE .STK-MED ONE Promethazine HCl 25 mg 11/07/18 17:25 11/07/18 18:11 Phenergan 25 Mg Inj IV 11/07/18 17:26 25 mg STAT ONE Administration Promethazine HCl Confirm 11/07/18 18:06 Phenergan 25 Mg Inj Administered 11/07/18 18:07 Dose 25 mg .ROUTE .STK-MED ONE Lab/Rad Data: Laboratory Result Diagrams 11/07/18 17:55 11/07/18 17:55 Laboratory Results 11/07/18 11/07/18 12 Range/Units 17:55 17:55 17:53 WBC 8.0 (4.0-10.5) K/mm3 RBC 4.41 (4.1-5.4) M/mm3 Hgb 13.3 (12.0-16.0) gm/dl Hct 40.3 (35-47) % MCV 91.4 (78-100) fl MCH 30.2 (26-32) pg MCHC 33.0 (32-36) g/dl RDW 13.3 (11.5-14.0) % Plt Count 311 (150-450) K/mm3 MPV 10.6 H (6-9.5) fl Gran % 65.4 (36.0-66.0) % Eos # (Auto) 0.11 (0-0.5) Absolute Lymphs (auto) 2.06 (1.0-4.6) Absolute Monos (auto) 0.56 (0.0-1.3) Lymphocytes % 25.7 (24.0-44.0) % Monocytes % 7.0 (0.0-12.0) % Eosinophils % 1.4 (0.00-5.0) % Basophils % 0.5 (0.0-0.4) % Absolute Granulocytes 5.26 (1.4-6.9) Basophils # 0.04 (0-0.4) Sodium 138 (137-145) mmol/L Potassium 4.3 (3.5-5.1) mmol/L Chloride 101 (98-107) mmol/L Carbon Dioxide 27 (22-30) mmol/L Anion Gap 14.7 (5-15) MEQ/L BUN 16 (7-17) mg/dL Creatinine 1.02 (0.52-1.04) mg/dL Estimated GFR > 60.0 ML/MIN Glucose 88 (74-106) mg/dL Lactic Acid 1.1 (0.4-2.0) Calcium 9.7 (8.4-10.2) mg/dL - Progress Progress: improved Blood Culture(s) Obtained: No Antibiotics given: No Counseled pt/family regarding: lab results, diagnosis, rad results - Departure Time of Disposition: 19:17 Departure Disposition: Home Clinical Impression: Headache, Brain parenchymal calcification Condition: Stable Critical Care Time: No Referrals: GLORIA PERALTA [Primary Care Provider] - Additional Instructions: You have a headache and you also have a calcification near the pineal gland in the brain. The calcification is unchanged from prior study. You were given Toradol 30 mg, Nubain 10 mg, Phenergan 25 mg, and fluids by IV in the ER. Follow-up with your neurologist for reevaluation of the known pineal tumor.
[2018-11-07] MEDS ORDERED: Phenergan 25 MG INJ IV ONE (17:25)
[2018-11-07] MEDS ORDERED: NALBUPHINE HCL 10 MG/1 ML INJECTION IV STA (17:25)
[2018-11-07] MEDS ORDERED: Sodium Chloride 0.9% 1000 ML 1,000 ML IV STA (17:25)
[2018-11-07 17:56] VITALS: PULSE 92
[2018-11-07] MEDS ORDERED: Nubain 10 MG/ML ONE (18:06)
[2018-11-07] MEDS ORDERED: Sodium Chloride 0.9% 1000 ML 1,000 ML ONE (18:06)
[2018-11-07] MEDS ORDERED: Phenergan 25 MG INJ ONE (18:06)
[2018-11-07 18:17] VITALS: BP 111/68
[2018-11-07 18:19] LABS: BASOPHIL % 0.5 % (0.0-0.4); Basophil (Absolute #) 0.04 (0-0.4); Eosinophil % 1.4 % (0.00-5.0); Eosinophil (Absolute #) 0.11 (0-0.5); Granulocyte Absolute (ANC) 5.26 (1.4-6.9); Granulocytes % 65.4 % (36.0-66.0); Hematocrit 40.3 % (35-47); Hemoglobin 13.3 gm/dl (12.0-16.0); Lymphocyte (Absolute #) 2.06 (1.0-4.6); Lymphocytes % 25.7 % (24.0-44.0); Mean Cell Volume 91.4 fl (78-100); Mean Corpuscular Hemoglobin 30.2 pg (26-32); Mean Platelet Volume 10.6 fl (6-9.5); Monocyte (Absolute #) 0.56 (0.0-1.3); Platelet Count 311 K/mm3 (150-450); Red Blood Count 4.41 M/mm3 (4.1-5.4); Red Cell Distribution Width 13.3 % (11.5-14.0)
[2018-11-07 18:39] LABS: ANION GAP 14.7 MEQ/L (5-15); BLOOD UREA NITROGEN 16 mg/dL (7-17); CHLORIDE 101 mmol/L (98-107); Calcium 9.7 mg/dL (8.4-10.2); Carbon Dioxide 27 mmol/L (22-30); Creatinine 1 1.02 mg/dL (0.52-1.04); Glucose 88 mg/dL (74-106); Potassium 4.3 mmol/L (3.5-5.1); SODIUM 138 mmol/L (137-145)
[2018-11-07] MEDS ORDERED: TORAdol 30 mg Injection IV ONE (19:19)
[2018-11-07 19:21] VITALS: O2SAT 98
[2018-11-07] MEDS ORDERED: TORAdol 30 mg Injection ONE (19:29)
--- NOTE | 2018-11-08 08:40 | XRAY ---
Indication: Headache. History of pineal tumor with surgery. Multiple contiguous axial images obtained through the head without contrast. Comparison: June 24, 2018 Stable remote lacunar infarcts in the basal ganglia bilaterally and adjacent to the right frontal horn. 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 Again no acute intracranial hemorrhage, abnormal extra-axial fluid collection, or mass effect. Fourth ventricle is midline without hydrocephalus. Bony calvarium intact again with left occipital craniotomy and underlying encephalomalacia. Also stable small right frontal craniotomy. There is complete opacification of the left frontal sinus with lesser degree right frontal and both ethmoid sinuses. Impression: 1. Stable bilateral remote lacunar infarcts and postsurgical changes as detailed. 2. No acute intracranial abnormalities. 3. Incidental paranasal sinus disease. Comment: Preliminary interpretation was made by VR. No discrepancy. CTDI 50.00
== END 2018-11-07 19:45 | disposition home or self-care (01) ==
LOC: ED 15:57
DX: R51 Headache (principal); R11.2 Nausea with vomiting, unspecified; G93.89 Other specified disorders of brain
CPT/HCPCS: 36000; 36415; 70450; 80048; 83605; 85025; 96360; 96374; 96375; 99284; J1885; J2300; J2550

== ENCOUNTER 2019-04-18 12:47 | Emergency (ER) | payer MEDICAID, OTHER ==
[2019-04-18] MEDS ORDERED: Nubain 10 MG/ML IV ONE (13:14)
[2019-04-18] MEDS ORDERED: Phenergan 25 MG INJ IM ONE ×2 (13:14→14:47)
[2019-04-18] MEDS ORDERED: Sodium Chloride 0.9% 1000 ML 1,000 ML IV SCH (13:15)
--- NOTE | 2019-04-18 13:17 | ERPHSYRPT ---
- History of Present Illness Time Seen by Provider: 04/18/19 13:08 Source: patient Exam Limitations: no limitations Patient Subjective Stated Complaint: Patient states the headach starteed yesterday and continued to worsen Triage Nursing Assessment: Patient ambulated to ER reporting headache, patienet states history of brain tumor and poplateal edema Physician History: 28-year-old white female arrives with complaint of headache photophobia symptoms since yesterday. No fevers. Past medical history includes high blood pressure anxiety depression brain tumor hydrocephalus papilledema. Past surgical history includes brain biopsy brain tumor removed, (pineal). Social history includes tobacco Timing/Duration: yesterday Severity: moderate Modifying Factors: Improves With: nothing Associated Symptoms: headaches, No nausea, No vomiting, No abdominal pain, No heartburn, No diaphoresis, No cough, No chills, No chest pain, No fever, No loss of appetite, No malaise, No rash, No syncope, No seizure, No weakness Allergies/Adverse Reactions: morphine Adverse Reaction (Mild, Verified 04/18/19 13:06) Hives Home Medications: No Reportable Medications [No Reported Medications] 11/07/18 [History] Hx Tetanus, Diphtheria Vaccination/Date Given: Yes Hx Influenza Vaccination/Date Given: Yes Hx Pneumococcal Vaccination/Date Given: Yes Immunizations Up to Date: Yes - Review of Systems Constitutional: No Fever, No Chills Eyes: No Symptoms, Other (pain behind eyes) Ears, Nose, & Throat: No Symptoms Respiratory: No Cough, No Dyspnea Cardiac: No Chest Pain, No Edema, No Syncope Abdominal/Gastrointestinal: No Abdominal Pain, No Nausea, No Vomiting, No Diarrhea Genitourinary Symptoms: No Dysuria Musculoskeletal: No Back Pain, No Neck Pain Skin: No Rash Neurological: Headache Psychological: No Symptoms Endocrine: No Symptoms All Other Systems: Reviewed and Negative - Past Medical History Pertinent Past Medical History: Yes Neurological History: Other ENT History: No Pertinent History Cardiac History: No Pertinent History, Hypertension Respiratory History: No Pertinent History Endocrine Medical History: No Pertinent History Musculoskeletal History: No Pertinent History GI Medical History: No Pertinent History History: No Pertinent History Psycho-Social History: Anxiety, Depression Female Reproductive Disorders: No Pertinent History Other Medical History: brain tumor. hydrocephalus. papilledema - Past Surgical History Past Surgical History: Yes Neuro Surgical History: Other Cardiac: No Pertinent History Respiratory: No Pertinent History Gastrointestinal: No Pertinent History Genitourinary: No Pertinent History Musculoskeletal: No Pertinent History Female Surgical History: No Pertinent History Other Surgical History: brain biopsy. brain tumor removal - pineal - Social History Smoking Status: Current every day smoker How long have you smoked: 10 years Exposure to second hand smoke: Yes Drug Use: none Patient Lives Alone: No - Female History Hx Last Menstrual Period: currently Hx Now: No - Nursing Vital Signs Nursing Vital Signs: Initial Vital Signs Temperature 98.6 F 04/18/19 12:54 Pulse Rate 98 H 04/18/19 12:54 Respiratory Rate 24 04/18/19 12:54 Blood Pressure 126/77 04/18/19 12:54 Pain Scale Pain Intensity 5 - Physical Exam General Appearance: mild distress, alert Eye Exam: PERRL/EOMI, eyes nml inspection Ears, Nose, Throat Exam: normal ENT inspection, TMs normal, pharynx normal, moist mucous membranes Neck Exam: normal inspection, non-tender, supple, full range of motion Respiratory Exam: normal breath sounds, lungs clear, No respiratory distress Cardiovascular Exam: regular rate/rhythm, normal heart sounds, normal peripheral pulses, capillary refill <2 sec Gastrointestinal/Abdomen Exam: soft, normal bowel sounds, No tenderness, No mass Back Exam: normal inspection, normal range of motion, No CVA tenderness, No vertebral tenderness Extremity Exam: normal inspection, normal range of motion, pelvis stable Neurologic Exam: alert, 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, 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, 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, normal mood/affect, nml cerebellar function, nml station & gait, sensation nml, No motor deficits Skin Exam: normal color, warm, dry, No rash SpO2 Interpretation: normal - Course Nursing assessment & vital signs reviewed: Yes Ordered Tests: Active Orders 24 hr Category Date Time Status IV Insertion STAT Care 04/18/19 13:14 Active BMP Stat Lab 04/18/19 13:40 Completed CBC W DIFF Stat Lab 04/18/19 13:40 Completed HCG QUALITATIVE,SERUM Stat Lab 04/18/19 13:40 Completed Medication Summary Generic Name Dose Route Start Last Admin Trade Name Freq PRN Reason Stop Dose Admin Sodium Chloride 1,000 mls @ 100 mls/hr 04/18/19 13:15 04/18/19 13:54 Sodium Chloride 0.9% 1000 Ml IV 05/18/19 13:14 100 mls/hr .Q10H KEELY Administration Discontinued Medications Generic Name Dose Route Start Last Admin Trade Name Awais PRN Reason Stop Dose Admin Ketorolac Tromethamine 30 mg 04/18/19 14:45 04/18/19 14:50 Toradol 30 Mg Injection IM 04/18/19 14:46 Not Given STAT ONE Ketorolac Tromethamine 30 mg 04/18/19 14:50 04/18/19 15:01 Toradol 30 Mg Injection IV 04/18/19 14:51 30 mg STAT ONE Administration Ketorolac Tromethamine Confirm 04/18/19 14:53 Toradol 30 Mg Injection Administered 04/18/19 14:54 Dose 30 mg .ROUTE .STK-MED ONE Nalbuphine HCl 10 mg 04/18/19 13:14 04/18/19 13:55 Nubain 10 Mg/Ml IV 04/18/19 13:15 10 mg STAT ONE Administration Nalbuphine HCl Confirm 04/18/19 13:46 Nubain 10 Mg/Ml Administered 04/18/19 13:47 Dose 10 mg .ROUTE .STK-MED ONE Promethazine HCl 25 mg 04/18/19 13:14 04/18/19 14:04 Phenergan 25 Mg Inj IM 04/18/19 13:15 Not Given STAT ONE Promethazine HCl Confirm 04/18/19 13:47 Phenergan 25 Mg Inj Administered 04/18/19 13:48 Dose 25 mg .ROUTE .STK-MED ONE Promethazine HCl 25 mg 04/18/19 14:47 04/18/19 15:03 Phenergan 25 Mg Inj IM 04/18/19 14:48 25 mg STAT ONE Administration Promethazine HCl Confirm 04/18/19 14:53 Phenergan 25 Mg Inj Administered 04/18/19 14:54 Dose 25 mg .ROUTE .STK-MED ONE Lab/Rad Data: Laboratory Result Diagrams 04/18/19 13:40 04/18/19 13:40 Laboratory Results 04/18/19 04/18/19 04/18/19 Range/Units 13:40 13:40 13:40 WBC 5.5 (4.0-10.5) K/mm3 RBC 4.51 (4.1-5.4) M/mm3 Hgb 13.4 (12.0-16.0) gm/dl Hct 40.4 (35-47) % MCV 89.6 (78-100) fl MCH 29.7 (26-32) pg MCHC 33.2 (32-36) g/dl RDW 14.3 H (11.5-14.0) % Plt Count 258 (150-450) K/mm3 MPV 11.5 H (6-9.5) fl Gran % 60.4 (36.0-66.0) % Eos # (Auto) 0.08 (0-0.5) Absolute Lymphs (auto) 1.60 (1.0-4.6) Absolute Monos (auto) 0.47 (0.0-1.3) Lymphocytes % 29.1 (24.0-44.0) % Monocytes % 8.5 (0.0-12.0) % Eosinophils % 1.5 (0.00-5.0) % Basophils % 0.5 (0.0-0.4) % Absolute Granulocytes 3.32 (1.4-6.9) Basophils # 0.03 (0-0.4) Sodium 140 (137-145) mmol/L Potassium 4.0 (3.5-5.1) mmol/L Chloride 103 (98-107) mmol/L Carbon Dioxide 26 (22-30) mmol/L Anion Gap 15.2 H (5-15) MEQ/L BUN 13 (7-17) mg/dL Creatinine 0.72 (0.52-1.04) mg/dL Estimated GFR > 60.0 ML/MIN Glucose 97 (74-106) mg/dL Calcium 10.0 (8.4-10.2) mg/dL Serum , Qual NEGATIVE (Negative) - Progress Progress: improved Progress Note: 04/18/19 14:45 Patient's labs are normal. Patient's vitals are stable. Patient given 10 mg of IV Nubain she refused initially Phenergan. Recheck patient states her headaches is better but she still has one . I've explained to the patient that Phenergan helps potentiates the Nubain will give the Phenergan IM will also give patient Toradol 30 IV. 04/18/19 15:28 Patient improved after Toradol and Phenergan. Still with headache but wants to go home. Will discharge - Departure Departure Disposition: Home Clinical Impression: Headache Qualifiers: Headache type: unspecified Headache chronicity pattern: unspecified pattern Intractability: not intractable Qualified Code(s): R51 - Headache Condition: Fair Critical Care Time: No Referrals: GLORIA PERALTA [Primary Care Provider] - Additional Instructions: Return home rest in a dark quiet room. Plenty of fluids. Followup with your family . Return for acute distress or for severe symptoms.
[2019-04-18] MEDS ORDERED: Nubain 10 MG/ML ONE (13:46)
[2019-04-18] MEDS ORDERED: Phenergan 25 MG INJ ONE ×2 (13:47→14:53)
[2019-04-18] MEDS ORDERED: Sodium Chloride 0.9% 1000 ML 1,000 ML ONE (13:48)
[2019-04-18 13:56] LABS: BASOPHIL % 0.5 % (0.0-0.4); Basophil (Absolute #) 0.03 (0-0.4); Eosinophil % 1.5 % (0.00-5.0); Eosinophil (Absolute #) 0.08 (0-0.5); Granulocyte Absolute (ANC) 3.32 (1.4-6.9); Granulocytes % 60.4 % (36.0-66.0); Hematocrit 40.4 % (35-47); Hemoglobin 13.4 gm/dl (12.0-16.0); Lymphocytes % 29.1 % (24.0-44.0); Mean Cell Volume 89.6 fl (78-100); Mean Corpuscular Hemoglobin 29.7 pg (26-32); Mean Corpuscular Hgb Concent. 33.2 g/dl (32-36); Mean Platelet Volume 11.5 fl (6-9.5); Monocyte (Absolute #) 0.47 (0.0-1.3); Monocytes % 8.5 % (0.0-12.0); Platelet Count 258 K/mm3 (150-450); Red Blood Count 4.51 M/mm3 (4.1-5.4); Red Cell Distribution Width 14.3 % (11.5-14.0); White Blood Count 5.5 K/mm3 (4.0-10.5)
[2019-04-18 14:04] LABS: ANION GAP 15.2 MEQ/L (5-15); BLOOD UREA NITROGEN 13 mg/dL (7-17); CHLORIDE 103 mmol/L (98-107); Carbon Dioxide 26 mmol/L (22-30); Creatinine 1 0.72 mg/dL (0.52-1.04); Glucose 97 mg/dL (74-106); SODIUM 140 mmol/L (137-145)
[2019-04-18] MEDS ORDERED: TORAdol 30 mg Injection IM ONE (14:45)
[2019-04-18] MEDS ORDERED: TORAdol 30 mg Injection IV ONE (14:50)
[2019-04-18] MEDS ORDERED: TORAdol 30 mg Injection ONE (14:53)
[2019-04-18 15:41] VITALS: BP 106/72; PULSE 70; O2SAT 98
== END 2019-04-18 15:42 | disposition home or self-care (01) ==
LOC: ED 12:47
DX: R51 Headache (principal)
CPT/HCPCS: 36000; 36415; 80048; 81025; 85025; 96360; 96372; 96374; 99284; J1885; J2300; J2550

== ENCOUNTER 2020-04-18 04:09 | Observation (INO) | payer MEDICARE ==
[2020-04-18] MEDS ORDERED: Sodium Chloride 0.9% 1000 ML 1,000 ML IV STA (04:15)
[2020-04-18] MEDS ORDERED: Sodium Chloride 0.9% 1000 ML 1,000 ML ONE ×2 (04:55→07:53)
[2020-04-18 04:58] LABS: Hematocrit 33.8 % (35-47); Hemoglobin 10.9 gm/dl (12.0-16.0); Mean Cell Volume 94.2 fl (78-100); Mean Corpuscular Hemoglobin 30.4 pg (26-32); Mean Corpuscular Hgb Concent. 32.2 g/dl (32-36); Mean Platelet Volume 9.7 fl (7.5-11.0); Platelet Count 252 K/mm3 (150-450); Red Blood Count 3.59 M/mm3 (4.1-5.4); Red Cell Distribution Width 13.9 % (11.5-14.0)
[2020-04-18 05:11] LABS: ALBUMIN 3.9 g/dL (3.5-5.0); ALKALINE PHOSPHATASE 105 U/L (38-126); ANION GAP 10.5 MEQ/L (5-15); BLOOD UREA NITROGEN 12 mg/dL (7-17); CHLORIDE 101 mmol/L (98-107); Calcium 8.6 mg/dL (8.4-10.2); Carbon Dioxide 26 mmol/L (22-30); Glucose 91 mg/dL (74-106); Potassium 3.1 mmol/L (3.5-5.1); SGOT/AST 447 U/L (14-36); SGPT/ALT 311 U/L (0-35); SODIUM 135 mmol/L (137-145)
--- NOTE | 2020-04-18 06:03 | ERPHSYRPT ---
- History of Present Illness Time Seen by Provider: 04/18/20 04:30 Source: patient Exam Limitations: no limitations Patient Subjective Stated Complaint: Patient began having abdominal pain on Tuesday and having really small amounts of "thick" urine. Patient states that pain is over a 10. Triage Nursing Assessment: Patient began having right upper quadrant pain beginning on Tuesday morning that has worsened and is now in bilateral flanks. Patient is alert and oriented, very tearful, and arrived by ambulance on a stretcher. Patient is pale, abdomen is tender, bowel sounds are present x4. Physician History: Patient is a 29-year-old female who presents to our ED with complaints of bilateral flank pain. Pain started yesterday and has been constant. Pain described as an ache that is localized to her flanks. No radiation. Patient describes her urine as being thick. No associated nausea or vomiting. No diarrhea. No fever. Pain is rated 10 out of 10. Patient has a history of a C- section with a subsequent tubal ligation. Patient voices no other complaints at this time. Timing/Duration: yesterday Severity: moderate Modifying Factors: Improves With: nothing Associated Symptoms: nausea, No vomiting, No shortness of breath, No heartburn, No diaphoresis, No fever, No seizure, No weakness Allergies/Adverse Reactions: morphine Adverse Reaction (Mild, Verified 04/18/20 04:50) Hives Home Medications: No Reportable Medications [No Reported Medications] 11/07/18 [History] Hx Tetanus, Diphtheria Vaccination/Date Given: Yes Hx Influenza Vaccination/Date Given: Yes Hx Pneumococcal Vaccination/Date Given: No Immunizations Up to Date: Yes Travel Risk - International Travel Have you traveled outside of the country in past 3 weeks: No Have you or anyone close to you been diagnosed with or: No Do your reside in a community with a known COVID-19 case?: Yes If Yes where:: [place] - Coronavirus Screening Has patient experienced Coronavirus symptoms: No - Review of Systems Constitutional: No Symptoms, No Fever, No Chills Eyes: No Symptoms Ears, Nose, & Throat: No Symptoms Respiratory: No Symptoms, No Cough, No Dyspnea Cardiac: No Symptoms, No Chest Pain, No Edema, No Syncope Abdominal/Gastrointestinal: Other (Pain to bilateral flanks.), No Abdominal Pain , No Nausea, No Vomiting, No Diarrhea Genitourinary Symptoms: No Symptoms, No Dysuria Musculoskeletal: No Symptoms, No Back Pain, No Neck Pain Skin: No Symptoms, No Rash Neurological: No Symptoms, No Dizziness, No Focal Weakness, No Sensory Changes Psychological: No Symptoms Endocrine: No Symptoms Hematologic/Lymphatic: No Symptoms Immunological/Allergic: No Symptoms All Other Systems: Reviewed and Negative - Past Medical History Pertinent Past Medical History: Yes Neurological History: Other ENT History: No Pertinent History Cardiac History: No Pertinent History, Hypertension Respiratory History: No Pertinent History Endocrine Medical History: No Pertinent History Musculoskeletal History: No Pertinent History GI Medical History: No Pertinent History History: No Pertinent History Psycho-Social History: Anxiety, Depression Female Reproductive Disorders: No Pertinent History Other Medical History: brain tumor. hydrocephalus. papilledema - Past Surgical History Past Surgical History: Yes Neuro Surgical History: Other Cardiac: No Pertinent History Respiratory: No Pertinent History Gastrointestinal: No Pertinent History Genitourinary: No Pertinent History Musculoskeletal: No Pertinent History Female Surgical History: Section, Tubal Ligation Other Surgical History: brain biopsy. brain tumor removal - pineal - Social History Smoking Status: Current every day smoker How long have you smoked: 10 years Exposure to second hand smoke: Yes Drug Use: marijuana, methamphetamines Patient Lives Alone: No - Female History Hx Last Menstrual Period: 04/09/2020 Hx Now: No - Nursing Vital Signs Nursing Vital Signs: Initial Vital Signs Temperature 98.9 F 04/18/20 04:21 Pulse Rate 107 H 04/18/20 04:21 Respiratory Rate 22 04/18/20 04:21 Blood Pressure 140/77 04/18/20 04:21 O2 Sat by Pulse Oximetry 100 04/18/20 04:21 Pain Scale Pain Intensity 9 - Physical Exam General Appearance: no apparent distress, alert Eye Exam: PERRL/EOMI, eyes nml inspection Ears, Nose, Throat Exam: normal ENT inspection, TMs normal, pharynx normal, moist mucous membranes Neck Exam: normal inspection, non-tender, supple, full range of motion Respiratory Exam: normal breath sounds, lungs clear, No respiratory distress Cardiovascular Exam: regular rate/rhythm, normal heart sounds, normal peripheral pulses Gastrointestinal/Abdomen Exam: soft, normal bowel sounds, tenderness ( Tenderness to palpation bilateral flank.), No mass Pelvic Exam: not done Rectal Exam: deferred Back Exam: normal inspection, normal range of motion, No CVA tenderness, No vertebral tenderness Extremity Exam: normal inspection, normal range of motion, pelvis stable Neurologic Exam: alert, 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, cooperative, normal mood/affect, nml cerebellar function, nml station & gait, sensation nml, No motor deficits Skin Exam: normal color, warm, dry, No rash Lymphatic Exam: No adenopathy SpO2 Interpretation: normal SpO2: 99 O2 Delivery: Room Air - Course Nursing assessment & vital signs reviewed: Yes - CT Exams Abdomen/Pelvis CT Interpretation: Tele-radiologist Report (CT abdomen pelvis reveals severe gaseous distention of the stomach possible ileus mild collections of air additionally seen in the small bowel and large bowel which may be suggestive of a mild generalized ileus in addition to gastric ileus. The appendix is normal. 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 04/18/20 04:18 Active IV Insertion STAT Care 04/18/20 04:15 Active NG to Suction (Insertion) ROUTINE Care 04/18/20 07:13 Active Pulse Oximetry (ED) STAT Care 04/18/20 04:15 Active ABDOMEN AND PELVIS W/0 CONTRAS [CT] Stat Exams 04/18/20 04:18 Taken BLOOD CULTURE Stat Lab 04/18/20 04:16 Received CBC W DIFF Stat Lab 04/18/20 04:54 Completed CMP Stat Lab 04/18/20 04:54 Completed HCG,QUALITATIVE URINE Stat Lab 04/18/20 06:35 Completed Lactic Acid Stat Lab 04/18/20 05:00 Completed Manual Differential NC Stat Lab 04/18/20 04:54 Completed UA W/RFX UR CULTURE Stat Lab 04/18/20 06:35 Completed Transfer Order Routine Transfer 04/18/20 Ordered Medication Summary Generic Name Dose Route Start Last Admin Trade Name Freq PRN Reason Stop Dose Admin Ceftriaxone Sodium/Dextrose 1 g in 50 mls @ 100 mls/hr 04/18/20 07:02 07:25 Rocephin 1 Gm-D5w 50 Ml Bag IV 04/18/20 07:31 100 mls/hr STAT STA 100 mls/hr Administration Potassium Chloride 20 meq in 100 mls @ 50 mls/hr 04/18/20 07:15 Potassium Chloride 20 Meq In Water 100ml IV 04/18/20 09:14 STAT ONE Discontinued Medications Generic Name Dose Route Start Last Admin Trade Name Awais PRN Reason Stop Dose Admin Sodium Chloride 1,000 mls @ 999 mls/hr 04/18/20 04:15 04/18/20 06:11 Sodium Chloride 0.9% 1000 Ml IV 04/18/20 05:15 Infused .Q1H1M STA Infusion Sodium Chloride Confirm 04/18/20 04:55 Sodium Chloride 0.9% 1000 Ml Administered 04/18/20 04:56 Dose 1,000 mls @ ud .ROUTE .STK-MED ONE Ceftriaxone Sodium/Dextrose Confirm 04/18/20 07:17 Rocephin 1 Gm-D5w 50 Ml Bag Administered 04/18/20 07:18 Dose 1 g in 50 mls @ ud IV .STK-MED ONE Morphine Sulfate 4 mg 04/18/20 07:15 04/18/20 07:23 Morphine Sulfate 4 Mg Inj IV 04/18/20 07:16 4 mg STAT ONE Administration Morphine Sulfate Confirm 04/18/20 07:21 Morphine Sulfate 4 Mg Inj Administered 04/18/20 07:22 Dose 4 mg .ROUTE .STK-MED ONE Potassium Chloride 40 meq 04/18/20 06:59 Klor Con 10 Meq PO 04/18/20 07:00 STAT ONE Potassium Chloride Confirm 04/18/20 07:16 Klor Con 10 Meq Administered 04/18/20 07:17 Dose 10 meq PO .STK-MED ONE Lab/Rad Data: Laboratory Result Diagrams 04/18/20 04:54 04/18/20 04:54 Laboratory Results 04/18/20 04/18/20 04/18/20 Range/Units 06:35 06:35 05:00 WBC (4.0-10.5) K/mm3 RBC (4.1-5.4) M/mm3 Hgb (12.0-16.0) gm/dl Hct (35-47) % MCV (78-100) fl MCH (26-32) pg MCHC (32-36) g/dl RDW (11.5-14.0) % Plt Count (150-450) K/mm3 MPV (7.5-11.0) fl Sodium (137-145) mmol/L Potassium (3.5-5.1) mmol/L Chloride (98-107) mmol/L Carbon Dioxide (22-30) mmol/L Anion Gap (5-15) MEQ/L BUN (7-17) mg/dL Creatinine (0.52-1.04) mg/dL Estimated GFR ML/MIN Glucose (74-106) mg/dL Lactic Acid 1.7 (0.4-2.0) Calcium (8.4-10.2) mg/dL Total Bilirubin (0.2-1.3) mg/dL AST (14-36) U/L ALT (0-35) U/L Alkaline Phosphatase (38-126) U/L Serum Total Protein (6.3-8.2) g/dL Albumin (3.5-5.0) g/dL Urine Color YELLOW (YELLOW) Urine Appearance SLIGHTLY CLOUDY (CLEAR) Urine pH 7.0 (5-6) Ur Specific Jet 1.019 (1.005-1.025) Urine Protein NEGATIVE (Negative) Urine Ketones NEGATIVE (NEGATIVE) Urine Blood NEGATIVE (0-5) Hermes/ul Urine Nitrite NEGATIVE (NEGATIVE) Urine Bilirubin NEGATIVE (NEGATIVE) Urine Urobilinogen 4 (0-1) mg/dL Ur Leukocyte Esterase SMALL (NEGATIVE) Urine WBC (Auto) 6-10 (0-5) /HPF Urine RBC (Auto) 3-5 (0-2) /HPF U Epithel Cells (Auto) RARE (FEW) /HPF Urine Bacteria (Auto) RARE (NEGATIVE) /HPF Urine Mucus (Auto) SLIGHT (NEGATIVE) /HPF Urine Culture Reflexed NO (NO) Urine Glucose NEGATIVE (NEGATIVE) mg/dL Urine HCG, Qual NEGATIVE (Negative) 04/18/20 04/18/20 Range/Units 04:54 04:54 WBC 2.0 L (4.0-10.5) K/mm3 RBC 3.59 L (4.1-5.4) M/mm3 Hgb 10.9 L (12.0-16.0) gm/dl Hct 33.8 L (35-47) % MCV 94.2 (78-100) fl MCH 30.4 (26-32) pg MCHC 32.2 (32-36) g/dl RDW 13.9 (11.5-14.0) % Plt Count 252 (150-450) K/mm3 MPV 9.7 (7.5-11.0) fl Sodium 135 L (137-145) mmol/L Potassium 3.1 L (3.5-5.1) mmol/L Chloride 101 (98-107) mmol/L Carbon Dioxide 26 (22-30) mmol/L Anion Gap 10.5 (5-15) MEQ/L BUN 12 (7-17) mg/dL Creatinine 0.90 (0.52-1.04) mg/dL Estimated GFR > 60.0 ML/MIN Glucose 91 (74-106) mg/dL Lactic Acid (0.4-2.0) Calcium 8.6 (8.4-10.2) mg/dL Total Bilirubin 0.30 (0.2-1.3) mg/dL AST 447 H (14-36) U/L ALT 311 H (0-35) U/L Alkaline Phosphatase 105 (38-126) U/L Serum Total Protein 7.0 (6.3-8.2) g/dL Albumin 3.9 (3.5-5.0) g/dL Urine Color (YELLOW) Urine Appearance (CLEAR) Urine pH (5-6) Ur Specific Jet (1.005-1.025) Urine Protein (Negative) Urine Ketones (NEGATIVE) Urine Blood (0-5) Hermes/ul Urine Nitrite (NEGATIVE) Urine Bilirubin (NEGATIVE) Urine Urobilinogen (0-1) mg/dL Ur Leukocyte Esterase (NEGATIVE) Urine WBC (Auto) (0-5) /HPF Urine RBC (Auto) (0-2) /HPF U Epithel Cells (Auto) (FEW) /HPF Urine Bacteria (Auto) (NEGATIVE) /HPF Urine Mucus (Auto) (NEGATIVE) /HPF Urine Culture Reflexed (NO) Urine Glucose (NEGATIVE) mg/dL Urine HCG, Qual (Negative) - Progress Progress: improved Progress Note: 04/18/20 07:28 Patient reassessed. Symptoms improved. CT reveals severe gaseous distention of the stomach. NG tube placed. Patient is hypokalemic at 3.1. Potassium replaced. Patient is somewhat dehydrated IV fluids administered. UA shows a UTI. Ceftriaxone antibiotic ordered. Dr. Piotr Rodriguez of general surgery consulted. Dr. Rodriguez accepts consultation. Case discussed with Dr. Munguia who accepts admission to observation. Plan of care discussed with patient. She agrees to admission to [facility] for further evaluation and treatment. Discussed with : Lizzie Will see patient in: hospital (observation) Counseled pt/family regarding: lab results, diagnosis, rad results - Departure Departure Disposition: Observation Clinical Impression: Flank pain, Normocytic anemia, Leukopenia, Hypokalemia, Transaminitis, UTI ( urinary tract infection), Abdominal distension (gaseous), Nephrolithiasis Condition: Stable Critical Care Time: No Referrals: GLORIA PERALTA [Primary Care Provider] -
[2020-04-18 06:39] LABS: Appearance SLIGHTLY CLOUDY (CLEAR); Bacteria RARE /HPF (NEGATIVE); Bilirubin NEGATIVE (NEGATIVE); Blood NEGATIVE Ery/ul (0-5); Epithelial Cells RARE /HPF (FEW); Glucose NEGATIVE (NEGATIVE); Ketones NEGATIVE (NEGATIVE); Leukocyte Esterase SMALL (NEGATIVE); Mucus SLIGHT /HPF (NEGATIVE); Nitrite NEGATIVE (NEGATIVE); Protein,Urine Dip NEGATIVE (Negative); Specific Gravity 1.019 (1.005-1.025); Urobilinogen 4 mg/dL (0-1)
[2020-04-18] MEDS ORDERED: Klor Con 10 MEQ PO ONE ×2 (06:59→07:16)
[2020-04-18] MEDS ORDERED: ROCEPHIN 1 Gm-D5w 50 ml Bag** 1 G/50 ML IVPB IV STA (07:02)
[2020-04-18] MEDS ORDERED: MORPHINE SULFATE 4 MG INJ IV ONE (07:15)
[2020-04-18] MEDS ORDERED: POTASSIUM CHLORIDE 20 mEq IN WATER 100ML 20 MEQ/100 ML BAG IV ONE (07:15)
[2020-04-18] MEDS ORDERED: ROCEPHIN 1 Gm-D5w 50 ml Bag** 1 G/50 ML IVPB IV ONE (07:17)
[2020-04-18] MEDS ORDERED: MORPHINE SULFATE 4 MG INJ ONE (07:21)
[2020-04-18] MEDS ORDERED: POTASSIUM CHLORIDE 20 mEq IN WATER 100ML 100 ML IV ONE (07:36)
[2020-04-18] MEDS ORDERED: Sodium Chloride 0.9% 1000 ML 1,000 ML IV SCH (08:45)
--- NOTE | 2020-04-18 09:14 | XRAY ---
Indication: Bilateral back pain. Multiple contiguous axial images obtained through the abdomen and pelvis without contrast using renal stone protocol. Comparison: None Lung bases clear of infiltrate or effusion. Heart is not enlarged. Right lower renal calyx demonstrates 3-4 mm curvilinear calculus. No hydronephrosis, hydroureter, or evidence for obstructive uropathy in either system. Stomach is moderately air distended with minimal food/fluid leveling. Noncontrasted stomach and bowel loops appear nonobstructed. Normal appendix. Mild sigmoid diverticulosis without diverticulitis. No free fluid/air. Gallbladder contracted without gallstones. Remaining liver, gallbladder, pancreas, spleen, adrenal glands, kidneys, ureters, bladder, and aorta are unremarkable for noncontrast exam. Osseous structures intact. No ventral or inguinal hernias. Impression: 1. Nonobstructing right renal micro-calculus. Negative for obstructive uropathy. 2. Air distended stomach either ingestion versus gastric ileus. 3. Sigmoid diverticulosis without diverticulitis. 4. Remaining CT abdomen/pelvis without contrast exam is negative. Comment: Preliminary interpretation was made by [facility]. No critical discrepancy.
[2020-04-18 11:59] LABS: BAND 7 % (0.0-2.0); Eosinophil 2 % (0.00-3.0); Lymphocytes 43 % (24-44); Monocyte 9 % (0.0-12.0); Neutrophils 39 % (36.0-66.0); Nucleated Red Blood Cell 1 %; Total Cells Counted 100
[2020-04-18 12:00] LABS: ANISOCYTOSIS 1+; Platelet Estimate NORMAL (NORMAL)
[2020-04-18] MEDS ORDERED: Zofran 4 MG/2 ML VIAL IV PRN (14:09)
[2020-04-18] MEDS: Sodium Chloride 0.9% 1000 ML 1,000 ML IV SCH (14:48)
[2020-04-18] MEDS: MORPHINE SULFATE 2 MG INJ IV PRN ×2 (14:49→18:06)
--- NOTE | 2020-04-18 16:26 | CONS ---
CONSULT DATE: 04/18/2020 HISTORY OF PRESENT ILLNESS: The patient is a 29 y/o female with significant flank pain. Started on Tuesday. She had small amounts of thick urine she said. Pain filed to improve. She came in the Emergency Department. She had a CT scan. Gallbladder was contracted. No gross stones in the gallbladder. She had elevated AST/ALT and had exposure to fianc that was diagnosed with hepatitis A recently. She did have a history of IV drug use in the past, but denies any known hepatitis herself in the past. PAST SURGICAL HISTORY: She had tubal and in the past. 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 HOME MEDICATIONS: No medications at home on a regular basis. ALLERGIES: SHE SAID SHE HAD HIVES TO MORPHINE REPORTEDLY. FAMILY HISTORY: Negative with regards to this problem, just exposure to her fianc as mentioned above. SOCIAL HISTORY: Smoker. She has used some methamphetamines and marijuana in the past. She has used some IV drugs in the past. She denies alcohol abuse. REVIEW OF SYSTEMS: 14 systems reviewed. No fever currently. No eyes, ears, nose, or throat symptoms. No cough. No chest pain. No abdominal pain according to the patient. She did have some nausea, but no vomiting. She did have the thick urine as she mentioned before. MUSCULOSKELETAL: Just the flank area pain. SKIN: No rash. NEURO: No focal weakness. PSYCH: No obvious psychological or endocrine symptoms or hematologic symptoms in the past. She has not had any blood disorders in the past or immunologic disorders. 14 systems reviewed negative other than noted above. She had had a little bit of high BP. Had been taking medication for and had a little bit of anxiety in the past. CT scan showed nonobstructing right renal microcalculus. No obstructive uropathy. Stomach was distended with gas. Had diverticulosis without diverticulitis. Gallbladder contracted. No evidence of any stones or reaction. WBC 2, Hgb 10.9, platelets 252,000. Total bilirubin 0.3. Alk. Phos. 105. However, AST 447, Alt 311, both of those are elevated. Her potassium was a little bit low at 3.1. UA - Had a few WBC and some bacteria, small amount of leukocyte esterase. PHYSICAL EXAMINATION: She afebrile. BP is 140/77, pulse is around 80 now. GENERAL: HEENT: NECK: CHEST: CVS: ABDOMEN: EXTREMITIES: NEURO: IMPRESSION: This patient was seen for Dr. Rigo Rodriguez who was on-call today when the consult came in. The patient is a 29 y/o female with mainly flank area pain, a little bit more so on the right. She does have nonobstructing microcalculus in her kidney. She has some elevated liver enzymes and personal history of exposure to fianc that had hepatitis A. She is passing a large amount of flatus. She denied any abdominal pain. Denies any nausea or vomiting. She has asked to eat at this time. Do not feel she needs any acute surgical intervention. Whether she has an ileus related to a urinary tract infection or early pyelonephritis without stranding on her kidney on the CT scan or whether she has an ileus related to some acute hepatitis. Either way, she is passing gas. She has no nausea or vomiting or abdominal pain now. No reason for any emergent surgical intervention. The gallbladder does not appear to be distended and does not appear to be the source of her symptoms at this time. As she is asking to eat, feel she can start on liquids and advance to soft diet as tolerated. She has a hepatitis panel that is pending. If that is negative and she has some recurrent nausea or vomiting, could consider upper endoscopy at some point for further work-up, but no emergent surgery necessary at this time. Will follow with you. Thank you for the consult.
[2020-04-18] MEDS ORDERED: PHARMACY DOSING REQUIRED: VANCOMYCIN IV ONE (18:31)
[2020-04-18] MEDS ORDERED: Zosyn 3.375 GM Vial IV ONE (18:54)
[2020-04-18] MEDS ORDERED: Sodium Chloride 0.9% 100 ML IVPB 100 ML IV ONE (18:55)
[2020-04-18] MEDS: Zosyn 3.375 GM Vial 3.375 GM in Sodium Chloride 100ML MINI-BAG PLUS 100 ML IV SCH (18:58)
[2020-04-18 20:49] LABS: Iron 36 ug/dL (37-170); Iron Saturation 10 % (20-39); TIBC 352 ug/dL (265-462)
[2020-04-18] MEDS ORDERED: VANCOMYCIN 1.5 GRAM/300 ML BAG 1.5 GM/300 ML PIGGYBACK IV ONE (21:00)
[2020-04-18] MEDS: TYLENOL 325 MG PO PRN (23:06)
[2020-04-19] MEDS: Zosyn 3.375 GM Vial 3.375 GM in Sodium Chloride 100ML MINI-BAG PLUS 100 ML IV SCH ×6 (00:27→23:36)
[2020-04-19 05:53] LABS: HEPATITIS A IGM Reactive (Non Reactive); HEPATITIS B VIRUS CORE TOT AB Non Reactive (Non Reactive); HEPATITIS C VIRUS ANTIBODY Non Reactive (Non Reactive); Hepatitis B Surface Ab.Quant. <3.50 mIU/mL (0.00-8.49); Hepatitis B Surface Antigen Non Reactive (Non Reactive)
[2020-04-19] MEDS: TYLENOL 325 MG PO PRN ×2 (08:11→18:53)
[2020-04-19 09:36] LABS: ALBUMIN 3.3 g/dL (3.5-5.0); ALKALINE PHOSPHATASE 159 U/L (38-126); ANION GAP 9.7 MEQ/L (5-15); BLOOD UREA NITROGEN 5 mg/dL (7-17); CHLORIDE 105 mmol/L (98-107); Calcium 8.3 mg/dL (8.4-10.2); Carbon Dioxide 23 mmol/L (22-30); Creatinine 1 0.61 mg/dL (0.52-1.04); Glucose 127 mg/dL (74-106); SGOT/AST 735 U/L (14-36); SODIUM 134 mmol/L (137-145); Total Protein 6.4 g/dL (6.3-8.2)
[2020-04-19 09:38] LABS: Hematocrit 36.3 % (35-47); Mean Cell Volume 93.3 fl (78-100); Mean Corpuscular Hemoglobin 30.8 pg (26-32); Mean Corpuscular Hgb Concent. 33.1 g/dl (32-36); Mean Platelet Volume 9.9 fl (7.5-11.0); Platelet Count 232 K/mm3 (150-450); Red Blood Count 3.89 M/mm3 (4.1-5.4); Red Cell Distribution Width 13.7 % (11.5-14.0); White Blood Count 3.1 K/mm3 (4.0-10.5)
[2020-04-19 09:43] LABS: SGPT/ALT 750 U/L (0-35)
[2020-04-19] MEDS ORDERED: VANCOCIN 1 GM VIAL*** 1.5 GM in Sodium Chloride 0.9% 250 ML 250 ML IV SCH (10:00)
--- NOTE | 2020-04-19 11:27 | PCM.NOTE ---
Date and Time: 04/19/20 1122 Subjective Assessment: Patient reports vomiting this AM. She states overall she feels better though. She reports her right sided pain is better today. She declines testing for HIV, syphillis, gonorrhea or chlamydia and states she has been screened for all of these recently. She states she is unemployed. Her mail goes to a [facility] address but she states she has been staying in [place]. Her boyfriend had Hep A she reported to us. She reported to me yesterday that she had been immunized for Hep A but I do not have confirmation of that. - Review of Systems Constitutional: Fever Respiratory: No Symptoms Cardiac: No Symptoms Abdominal/Gastrointestinal: Nausea, Vomiting Genitourinary Symptoms: No Symptoms Objective Exam General Appearance: no apparent distress Neurologic Exam: alert, cooperative, normal mood/affect Skin Exam: normal color, warm, dry Respiratory Exam: normal breath sounds, lungs clear, No crackles/rales, No rhonchi, No wheezing Cardiovascular Exam: regular rate/rhythm, No murmur, No friction rub, No gallop Gastrointestinal/Abdomen Exam: soft, normal bowel sounds, No tenderness, No distention, No mass Extremity Exam: other (no c/c/e) OBJECTIVE DATA Vital Signs: Vital Signs - 24 hr Temp Pulse Resp BP Pulse Ox 04/19/20 08:00 100.4 F 87 17 148/88 99 04/19/20 04:12 99.1 F 83 20 111/62 98 04/18/20 23:53 102.2 F 87 18 160/72 98 04/18/20 19:58 99.6 F 95 H 16 138/67 100 04/18/20 14:17 100.9 F 96 H 16 111/81 96 Pain Assessment - Last Documented Pain Intensity 7 Pain Scale Used 0-10 Pain Scale Intake and Output: Intake & Output 04/17/20 04/18/20 04/19/20 04/20/20 06:59 06:59 06:59 06:59 Intake Total 2067 240 Output Total 1750 200 Balance 317 40 Weight 88.451 kg 95.3 kg Lab Results: Lab Results-Last 24 Hours 04/18/20 04/18/20 04/18/20 Range/Units 04:54 05:10 20:25 WBC (4.0-10.5) K/mm3 RBC (4.1-5.4) M/mm3 Hgb (12.0-16.0) gm/dl Hct (35-47) % MCV (78-100) fl MCH (26-32) pg MCHC (32-36) g/dl RDW (11.5-14.0) % Plt Count (150-450) K/mm3 MPV (7.5-11.0) fl Absolute Granulocytes 0.90 L (1.4-6.9) Segmented Neutrophils 39 (36.0-66.0) % Band Neutrophils 7 H (0.0-2.0) % Lymphocytes (Manual) 43 (24-44) % Monocytes (Manual) 9 (0.0-12.0) % Eosinophils (Manual) 2 (0.00-3.0) % Nucleated RBCs 1 % Platelet Estimate NORMAL (NORMAL) RBC Morphology ABNORMAL Anisocytosis 1+ Sodium (137-145) mmol/L Potassium (3.5-5.1) mmol/L Chloride (98-107) mmol/L Carbon Dioxide (22-30) mmol/L Anion Gap (5-15) MEQ/L BUN (7-17) mg/dL Creatinine (0.52-1.04) mg/dL Estimated GFR ML/MIN Glucose (74-106) mg/dL Calcium (8.4-10.2) mg/dL Magnesium 1.7 (1.6-2.3) mg/dL Iron (37-170) ug/dL TIBC (265-462) ug/dL Iron Saturation (20-39) % Ferritin (6.24-137) ng/mL Total Bilirubin (0.2-1.3) mg/dL AST (14-36) U/L ALT (0-35) U/L Alkaline Phosphatase (38-126) U/L Serum Total Protein (6.3-8.2) g/dL Albumin (3.5-5.0) g/dL Vitamin B12 (239-931) pg/mL Hepatitis A IgM Ab Reactive H (Non Reactive) Hep Bs Antigen Non Reactive (Non Reactive) Hep Bs Antibody, Quant <3.50 (0.00-8.49) mIU/mL Hep B Core Total Ab Non Reactive (Non Reactive) Hepatitis C Antibody Non Reactive (Non Reactive) 04/18/20 04/18/20 04/19/20 Range/Units 20:25 20:25 09:05 WBC 3.1 L (4.0-10.5) K/mm3 RBC 3.89 L (4.1-5.4) M/mm3 Hgb 12.0 (12.0-16.0) gm/dl Hct 36.3 (35-47) % MCV 93.3 (78-100) fl MCH 30.8 (26-32) pg MCHC 33.1 (32-36) g/dl RDW 13.7 (11.5-14.0) % Plt Count 232 (150-450) K/mm3 MPV 9.9 (7.5-11.0) fl Absolute Granulocytes (1.4-6.9) Segmented Neutrophils (36.0-66.0) % Band Neutrophils (0.0-2.0) % Lymphocytes (Manual) (24-44) % Monocytes (Manual) (0.0-12.0) % Eosinophils (Manual) (0.00-3.0) % Nucleated RBCs % Platelet Estimate (NORMAL) RBC Morphology Anisocytosis Sodium (137-145) mmol/L Potassium (3.5-5.1) mmol/L Chloride (98-107) mmol/L Carbon Dioxide (22-30) mmol/L Anion Gap (5-15) MEQ/L BUN (7-17) mg/dL Creatinine (0.52-1.04) mg/dL Estimated GFR ML/MIN Glucose (74-106) mg/dL Calcium (8.4-10.2) mg/dL Magnesium (1.6-2.3) mg/dL Iron 36 L (37-170) ug/dL TIBC 352 (265-462) ug/dL Iron Saturation 10 L (20-39) % Ferritin 96.0 (6.24-137) ng/mL Total Bilirubin (0.2-1.3) mg/dL AST (14-36) U/L ALT (0-35) U/L Alkaline Phosphatase (38-126) U/L Serum Total Protein (6.3-8.2) g/dL Albumin (3.5-5.0) g/dL Vitamin B12 774 (239-931) pg/mL Hepatitis A IgM Ab (Non Reactive) Hep Bs Antigen (Non Reactive) Hep Bs Antibody, Quant (0.00-8.49) mIU/mL Hep B Core Total Ab (Non Reactive) Hepatitis C Antibody (Non Reactive) 04/19/20 Range/Units 09:05 WBC (4.0-10.5) K/mm3 RBC (4.1-5.4) M/mm3 Hgb (12.0-16.0) gm/dl Hct (35-47) % MCV (78-100) fl MCH (26-32) pg MCHC (32-36) g/dl RDW (11.5-14.0) % Plt Count (150-450) K/mm3 MPV (7.5-11.0) fl Absolute Granulocytes (1.4-6.9) Segmented Neutrophils (36.0-66.0) % Band Neutrophils (0.0-2.0) % Lymphocytes (Manual) (24-44) % Monocytes (Manual) (0.0-12.0) % Eosinophils (Manual) (0.00-3.0) % Nucleated RBCs % Platelet Estimate (NORMAL) RBC Morphology Anisocytosis Sodium 134 L (137-145) mmol/L Potassium 4.0 D (3.5-5.1) mmol/L Chloride 105 (98-107) mmol/L Carbon Dioxide 23 (22-30) mmol/L Anion Gap 9.7 (5-15) MEQ/L BUN 5 L (7-17) mg/dL Creatinine 0.61 (0.52-1.04) mg/dL Estimated GFR > 60.0 ML/MIN Glucose 127 H (74-106) mg/dL Calcium 8.3 L (8.4-10.2) mg/dL Magnesium (1.6-2.3) mg/dL Iron (37-170) ug/dL TIBC (265-462) ug/dL Iron Saturation (20-39) % Ferritin (6.24-137) ng/mL Total Bilirubin 0.80 (0.2-1.3) mg/dL AST 735 H (14-36) U/L ALT 750 H (0-35) U/L Alkaline Phosphatase 159 H (38-126) U/L Serum Total Protein 6.4 (6.3-8.2) g/dL Albumin 3.3 L (3.5-5.0) g/dL Vitamin B12 (239-931) pg/mL Hepatitis A IgM Ab (Non Reactive) Hep Bs Antigen (Non Reactive) Hep Bs Antibody, Quant (0.00-8.49) mIU/mL Hep B Core Total Ab (Non Reactive) Hepatitis C Antibody (Non Reactive) Radiology Exams: Radiology Procedures Category Date Time Status ABDOMEN AND PELVIS W/0 CONTRAS [CT] Stat Exams 04/18/20 04:18 Completed Multi-Disciplinary Progress Notes: Multi-Disciplinary Progress Notes 04/19/20 08:44 Pharmacy Note by Marcus Grant Pharmacokinetic dosing service Date: 04/19/2020 Time: 829 Objective: PHARMACY VANCOMYCIN CONSULT Patient: RIKY BERKOWITZ Floor: 107 Age: 29 yo Serum creatinine: 0.9 mg/dL Height: 67 Inches Weight (kg): 95 Diagnosis: NEUTROPENIC FEVER, ABDOMINAL PAIN Relevant medical/social history: Cultures and sensitivities: PENDING Other labs: SR CR 0.9 WBC 2.0 Assessment: IBW (kg): 61.60 Dosing wt(kg): 95 Estimated Creatinine clearance (ml/min): 89.7 CRCL method: Cockcroft and Gault using ibw(default). Drug selected: Vancomycin Loading dose (mg): 0 Vd (liters): 71.2 (factor used: 0.75 L/kg) Josemanuel (hr-1): 0.079 Half life ( hrs): 8.77 Recommended dose: 1500 mg Interval: 12 hrs Infusion time (hrs): 2.0 Predicted peak (mcg/mL): 31.8 Predicted trough (mcg/mL): 14.43 Total body weight is being used for vancomycin dosing. Renal function is stable [ xxxxx ] /unstable [ ] Recommendations: Give Vancomycin 1500 mg q 12 hrs with an expected Cpeak of 31.8 mcg/ml and an expected Ctrough of 14.43 mcg/ml Renal dosing of other antibiotics (review renal dosing of other medications and list guidelines here): PARDEEP Thank you for the consult, will continue to follow. Signature: Paige GRANT Initialized on 04/19/20 08:44 - END OF NOTE Assessment/Plan (1) Hepatitis A infection Current Visit: Yes Status: Acute Assessment & Plan: Continue with IV fluids and supportive care. Will check LFT's daily while in hospital. Report filled out and faxed to [facility]. Patient's address is in [facility] but she states she has been staying in [place]. Code(s): B15.9 - HEPATITIS A WITHOUT HEPATIC COMA (2) Fever Current Visit: Yes Status: Acute Assessment & Plan: Most likely due to Hep A but with her IV drug use and neutropenia. I would like to continue IV antibiotics until blood cultures have been negative for 48 hours. Code(s): R50.9 - FEVER, UNSPECIFIED (3) Neutropenic fever Current Visit: Yes Status: Acute Assessment & Plan: Awaiting differential for ANC today. Her ANC yesterday was below 1000. Continue isolation and IV antibiotics. Code(s): D70.9 - NEUTROPENIA, UNSPECIFIED; R50.81 - FEVER PRESENTING WITH CONDITIONS CLASSIFIED ELSEWHERE (4) Elevated liver function tests Current Visit: Yes Status: Acute Assessment & Plan: Due to active Hep A infection. Code(s): R79.89 - OTHER SPECIFIED ABNORMAL FINDINGS OF BLOOD CHEMISTRY (5) IV drug abuse Current Visit: Yes Status: Acute Code(s): F19.10 - OTHER PSYCHOACTIVE SUBSTANCE ABUSE, UNCOMPLICATED (6) Abdominal discomfort Current Visit: Yes Status: Acute Assessment & Plan: Most likely due to Hep A. Patient states this is better today. Code(s): R10.9 - UNSPECIFIED ABDOMINAL PAIN
[2020-04-19] MEDS: VANCOMYCIN 1.5 GRAM/300 ML BAG 1.5 GM/300 ML PIGGYBACK IV SCH ×2 (11:58→20:32)
[2020-04-19] MEDS: ENOXAPARIN SODIUM SQ SCH (12:05)
[2020-04-19] MEDS: Sodium Chloride 0.9% 1000 ML 1,000 ML IV SCH (19:24)
[2020-04-19] MEDS ORDERED: Zosyn 3.375 GM Vial IV ONE (19:51)
[2020-04-19] MEDS: Protonix 40MG Tablet PO SCH (20:28)
[2020-04-20] MEDS: Zosyn 3.375 GM Vial 3.375 GM in Sodium Chloride 100ML MINI-BAG PLUS 100 ML IV SCH (04:58)
[2020-04-20] MEDS: Sodium Chloride 0.9% 1000 ML 1,000 ML IV SCH (06:27)
[2020-04-20] MEDS: Protonix 40MG Tablet PO SCH (09:06)
[2020-04-20] MEDS: MORPHINE SULFATE 2 MG INJ IV PRN (09:07)
[2020-04-20] MEDS: ENOXAPARIN SODIUM SQ SCH (09:17)
[2020-04-20 09:55] LABS: Hematocrit 36.7 % (35-47); Hemoglobin 12.2 gm/dl (12.0-16.0); Mean Corpuscular Hemoglobin 30.6 pg (26-32); Mean Corpuscular Hgb Concent. 33.2 g/dl (32-36); Mean Platelet Volume 10.3 fl (7.5-11.0); Platelet Count 227 K/mm3 (150-450); Red Blood Count 3.99 M/mm3 (4.1-5.4); Red Cell Distribution Width 13.6 % (11.5-14.0); White Blood Count 2.8 K/mm3 (4.0-10.5)
[2020-04-20] MEDS ORDERED: ROCEPHIN 1 Gm-D5w 50 ml Bag** 1 G/50 ML IVPB IV SCH (10:00)
--- NOTE | 2020-04-20 11:00 | PCM.DCORD ---
- Discharge Discharge Date: 04/20/20 Disposition: Home, Self-Care Condition: Fair Prescriptions: New Omeprazole 20 mg PO DAILY #30 capsule.dr Green [Omnicef 300 mg] 300 mg PO BID #10 capsule Acetaminophen 325 mg [Tylenol 325 mg] 650 mg PO Q4H PRN PRN #0 tablet PRN Reason: Pain And/Or Fever Additional Instructions: Return to ER if unable to keep fluids down or not drinking fluids well, abdominal pain, or any other concerns. Call your primary doctor Tuesday for a follow up appointment. Follow up with: GLORIA PERALTA [Primary Care Provider] - 1 Week
[2020-04-20 11:56] VITALS: BP 120/66; PULSE 89; O2SAT 98
[2020-04-20 15:04] LABS: BAND 15 % (0.0-2.0); Eosinophil 4 % (0.00-3.0); Lymphocytes 24 % (24-44); Monocyte 1 % (0.0-12.0); Neutrophils 56 % (36.0-66.0); Total Cells Counted 100
[2020-04-20 15:09] LABS: Platelet Estimate NORMAL (NORMAL)
--- NOTE | 2020-04-21 14:25 | HP ---
HISTORY OF PRESENT ILLNESS: This is a 29 y/o patient who presented to the Emergency Department. She states that she started having worsening abdominal pain around 3:30 in the morning and right flank pain. She says she always has gas and burps a lot and sometimes that it's worse than other times and that has been going on for a year. She reports a fever to 102.7 at home, but no documented fever when she came in to the Emergency Room. She denies any history of any surgeries to her stomach. She says she has heartburn and that Prilosec doesn't help. She has never had any scopes of her stomach. She reports that she started passing gas and belching a lot and her belly felt better and so she did not want the NG tube as recommended. REVIEW OF SYSTEMS: She has had some rhinorrhea which she reports is due to crying from the pain. No cough. No diarrhea. No constipation. No rashes. She reports her feet have felt swollen. Other Review of Systems as noted in the HPI. 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 She is planning to follow-up with her primary care doctor to have this restarted. PAST SURGICAL HISTORY: Brain surgery X 2, tubal ligation, . SOCIAL HISTORY: She denies alcohol use. She reports she smokes 7-8 cigarettes per day. She denies any herbal supplements. She reports she uses IV drugs and last used 2 days ago, but has decided to quit. She uses marijuana. FAMILY HISTORY: Noncontributory. CURRENT MEDICATIONS: Please see the home medication reconciliation form. ALLERGIES: NKDA. PHYSICAL EXAMINATION: VITAL SIGNS: Temperature current 98.9, heart rate 107, respiratory rate 22, O2 saturation 100% on room air, BP 140/77. GENERAL: The patient is sitting up in bed in no acute distress. HEART: Regular rate and rhythm. No murmurs, gallops, or rubs. CHEST: Clear to auscultation bilaterally. ABDOMEN: Soft, nontender, nondistended with normal bowel sounds. EXTREMITIES: No clubbing, cyanosis, or edema. SKIN: Warm, dry, and intact. LABORATORY DATA: WBC is 2.0 with 39 neutrophils, 7 bands, 43 lymphs, 9 monos, 2 eosinophils. Sodium 135, potassium 3.1, AST 447, ALT 331. UA 6-10 WBC, rare bacteria. She has blood cultures in lab. I have asked them to add a urine culture. She had a CT of her abdomen and pelvis which revealed gaseous distention. Please see the radiologist's report for full details. ASSESSMENT AND PLAN: 1. NEUTROPENIA. We plan to recheck her blood counts in the morning. At time of dictation, the patient has a temperature recorded in her chart of 100.9. Will plan to start broad spectrum antibiotics for a neutropenic fever. 2. ANEMIA. Check iron levels and vitamin B12. 3. HYPOKALEMIA. She had potassium replacement in the Emergency Room. Plan to recheck that in the morning and check her magnesium level now. As for her elevated liver function tests, will make sure a hepatitis panel has been sent off. 4. IV DRUG USE. This does put her at higher risk for bacteremia sepsis, possible endocarditis. 5. ABDOMEN DISTENTION. Etiology is unclear. General surgeons were consulted and we appreciate their input.
--- NOTE | 2020-04-22 16:40 | DS ---
DISCHARGE DIAGNOSIS: 1. ACUTE HEPATITIS A INFECTION. 2. FEVER. 3. NEUTROPENIA. 4. ELEVATED LIVER FUNCTION TEST. 5. IV DRUG USE. 6. FLANK AND ABDOMEN DISCOMFORT. 7. URINARY TRACT INFECTION. 8. HISTORY OF BRAIN TUMOR. DISCHARGE PHYSICAL EXAM: VITALS: Temperature current 100.2, temperature maximum 102.9, heart rate 93, respiratory rate 18, O2 saturation 97% on room air, BP 117/55. GENERAL: The patient was sitting up in bed, alert, in no acute distress. CVS: She had a regular rate and rhythm. No murmurs, gallops, or rubs are appreciated. CHEST: Clear to auscultation bilaterally. ABDOMEN: Soft, nontender, nondistended with normal bowel sounds. EXTREMITIES: No clubbing, cyanosis, or edema. SKIN: Warm, dry, and intact and without jaundice. HOSPITAL COURSE: 1. Acute hepatitis A. She had a hepatitis panel sent and her hepatitis A IgM was elevated. I think this is the cause for the flank pain that she had on admission and the fever that she has been having as well as the elevated liver function tests. A report was made to the [facility] and faxed with confirmation and the patient reports she can follow-up with her primary care provider this week. She will be instructed to return to the Emergency Room if unable to keep fluids down or same symptoms or any other concerns. The patient reports she was able to eat a tenderloin sandwich and keep that down without any vomiting last night and she desires to go home. She has been a difficult patient to draw blood from. Her liver tests were elevated and they need to be followed up as an outpatient and she has also had some neutropenia that is currently stable. She has blood cultures in lab that have been no growth to date. A urine culture did grow bacteria of E. coli and so that she was started on ceftriaxone and will plan to finish a course of cefdinir. 2. Fever. Again, most likely due to hepatitis A. 3. Neutropenia. Stable at this time. Will continue to follow as an outpatient. 4. Elevated liver function tests. Again, will be followed as an outpatient. 5. IV drug use. The patient reports that she plans to quit using drugs. 6. Abdominal discomfort, flank discomfort now resolved. 7. Urinary tract infection. She was given ceftriaxone in the hospital. Will give her 5 more days of cefdinir 300 mg PO bid. 8. History of a brain tumor. I offered to order an MRI of her brain, but she wants to go home today which is Tuesday, there is no MRI offered today, and follow-up with a regular doctor. DISCHARGE MEDICATIONS: Please see the discharge order. DISPOSITION: Patient was discharged to home in fair condition. To follow-up with her primary care doctor.
== END 2020-04-20 11:40 | disposition home or self-care (01) ==
LOC: ED 04:09 → ICU 14:00 → OBSVTOIN 14:20 → INTOOBSV 14:20 → MED SURG 15:50
PROVIDERS: ADMIT Internal Medicine; ATTEND Internal Medicine
DX: B15.9 Hepatitis A without hepatic coma (principal); D70.9 Neutropenia, unspecified; R50.81 Fever presenting with conditions classified elsewhere; D64.9 Anemia, unspecified; F19.90 Other psychoactive substance use, unspecified, uncomplicated; N39.0 Urinary tract infection, site not specified; B96.20 Unspecified Escherichia coli [E. coli] as the cause of diseases classified elsewhere; R14.0 Abdominal distension (gaseous); E87.6 Hypokalemia; R94.5 Abnormal results of liver function studies; R10.9 Unspecified abdominal pain; N20.0 Calculus of kidney; R11.2 Nausea with vomiting, unspecified; Z79.899 Other long term (current) drug therapy; Z86.69 Personal history of other diseases of the nervous system and sense organs
CPT/HCPCS: 36000; 36415; 74176; 80053; 80074; 81001; 82607; 82728; 83540; 83550; 83605; 83735; 84703; 85025; 87040; 87077; 87086; 87186; 93041; 93268; 94760; 96360; 96361; 96365; 96367; 96374; 99285; G0378; J0696; J2270; J2405; J3480; A9270-GY; J3370

== ENCOUNTER 2020-06-03 05:23 | Emergency (ER) | payer MEDICARE ==
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
[2020-06-03] MEDS ORDERED: Zofran 4 MG/2 ML VIAL IV ONE (05:45)
[2020-06-03] MEDS ORDERED: Sodium Chloride 0.9% 1000 ML 1,000 ML IV SCH (05:45)
[2020-06-03] MEDS ORDERED: Sodium Chloride 0.9% 1000 ML 1,000 ML ONE (06:09)
[2020-06-03] MEDS ORDERED: Zofran 4 MG/2 ML VIAL ONE (06:09)
[2020-06-03 07:43] LABS: Absolute Neutrophil Ct (ANC) 9.58 (1.4-6.9); BASOPHIL % 0.2 % (0.0-0.4); Basophil (Absolute #) 0.02 (0-0.4); Eosinophil % 0.3 % (0.00-5.0); Eosinophil (Absolute #) 0.04 (0-0.5); Hematocrit 39.4 % (35-47); Hemoglobin 12.9 gm/dl (12.0-16.0); Lymphocyte (Absolute #) 1.59 (1.0-4.6); Lymphocytes % 13.3 % (24.0-44.0); Mean Cell Volume 92.5 fl (78-100); Mean Corpuscular Hemoglobin 30.3 pg (26-32); Mean Corpuscular Hgb Concent. 32.7 g/dl (32-36); Mean Platelet Volume 9.9 fl (7.5-11.0); Monocyte (Absolute #) 0.76 (0.0-1.3); Monocytes % 6.3 % (0.0-12.0); Neutrophil % 79.9 % (36.0-66.0); Platelet Count 303 K/mm3 (150-450); Red Blood Count 4.26 M/mm3 (4.1-5.4); Red Cell Distribution Width 13.8 % (11.5-14.0)
[2020-06-03 08:12] LABS: ALBUMIN 4.1 g/dL (3.5-5.0); BLOOD UREA NITROGEN 11 mg/dL (7-17); CHLORIDE 108 mmol/L (98-107); Calcium 9.1 mg/dL (8.4-10.2); Carbon Dioxide 24 mmol/L (22-30); Creatinine 1 0.82 mg/dL (0.52-1.04); Glucose 111 mg/dL (74-106); Potassium 3.9 mmol/L (3.5-5.1); SODIUM 137 mmol/L (137-145); Total Protein 7.4 g/dL (6.3-8.2)
[2020-06-03 08:13] LABS: ALKALINE PHOSPHATASE 90 U/L (38-126); ANION GAP 8.9 MEQ/L (5-15); ETHYL ALCOHOL < 10 mg/dL (0-10); SGOT/AST 27 U/L (14-36); SGPT/ALT 28 U/L (0-35)
[2020-06-03 08:15] LABS: Amourphous Crystal MODERATE /HPF (NEGATIVE); Appearance CLOUDY (CLEAR); Bacteria FEW /HPF (NEGATIVE); Bilirubin NEGATIVE (NEGATIVE); Blood NEGATIVE Ery/ul (0-5); Epithelial Cells FEW /HPF (FEW); Glucose NEGATIVE (NEGATIVE); Hyaline Casts 0-2 /LPF (0-2); Ketones NEGATIVE (NEGATIVE); Leukocyte Esterase SMALL (NEGATIVE); Mucus SLIGHT /HPF (NEGATIVE); Nitrite NEGATIVE (NEGATIVE); Protein,Urine Dip 30 (Negative); Specific Gravity 1.021 (1.005-1.025); Urobilinogen 2 mg/dL (0-1)
[2020-06-03 08:46] LABS: Amphetamine,Urine POSITIVE (NEGATIVE); Barbiturate,Urine NEGATIVE (NEGATIVE); Benzodiazepine,Urine NEGATIVE (NEGATIVE); Cocaine,Urine NEGATIVE (NEGATIVE)
[2020-06-03 08:47] LABS: Methadone,Urine NEGATIVE (NEGATIVE); Opiate,Urine NEGATIVE (NEGATIVE); PCP,Urine NEGATIVE (NEGATIVE); THC,Urine NEGATIVE (NEGATIVE)
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
[2020-06-03 09:35] VITALS: BP 110/76; PULSE 110; O2SAT 100
== END 2020-06-03 09:10 | disposition home or self-care (01) ==
LOC: ED 05:23
DX: T14.8XXA Other injury of unspecified body region, initial encounter (principal); V89.0XXA Person injured in unspecified motor-vehicle accident, nontraffic, initial encounter; Y93.9 Activity, unspecified; Y92.9 Unspecified place or not applicable; S40.811A Abrasion of right upper arm, initial encounter; S70.212A Abrasion, left hip, initial encounter; S50.811A Abrasion of right forearm, initial encounter; N39.0 Urinary tract infection, site not specified; M25.552 Pain in left hip; S20.419A Abrasion of unspecified back wall of thorax, initial encounter; Z03.89 Encounter for observation for other suspected diseases and conditions ruled out
CPT/HCPCS: 36415; 70450; 72125; 72128; 73060; 73090; 74176; 80053; 80307; 81001; 81025; 85025; 87086; 93005; 96374; 99285; G0480; J2405

== ENCOUNTER 2021-07-16 22:30 | Emergency (ER) | payer MEDICARE ==
[2021-07-16] MEDS ORDERED: Pepcid 20 MG VIAL IV ONE (23:01)
[2021-07-16] MEDS ORDERED: solu-MEDROL 125 MG, Sterile H2O 10 ml 2 ML IV ONE ×2 (23:01)
[2021-07-16] MEDS ORDERED: BENADRYL 50 MG/ML IV ONE (23:01)
[2021-07-16] MEDS ORDERED: Pepcid 20 MG PO ONE (23:43)
[2021-07-16] MEDS ORDERED: BENADRYL 50 MG/ML IM ONE (23:43)
[2021-07-16] MEDS ORDERED: solu-MEDROL 125 MG, Sterile H2O 10 ml 2 ML IM ONE ×2 (23:44)
[2021-07-16] MEDS ORDERED: BENADRYL 50 MG/ML ONE (23:46)
[2021-07-16] MEDS ORDERED: Pepcid 20 MG ONE (23:46)
[2021-07-16] MEDS ORDERED: solu-MEDROL ONE (23:46)
[2021-07-16] MEDS ORDERED: Sterile H2O 10 ml IJ ONE (23:46)
[2021-07-17 03:13] VITALS: O2SAT 98
--- NOTE | 2021-07-17 03:23 | ERPHSYRPT ---
- History of Present Illness Time Seen by Provider: 07/16/21 22:55 Source: patient Exam Limitations: no limitations Patient Subjective Stated Complaint: pt states she opened an advil liquigel to put directly on her tooth that has been having pain in. states after approx 10 min she started having swelling in her lip and tongue on the rt side. Triage Nursing Assessment: pt alert and oriented, answers questions approp. pt ambulatory with steady gait noted. pt tearful at times. respirations nonlabored with lungs cta. swelling noted to rt upper and lower lip and some swelling ntoed to rt side of tongue. Physician History: Patient is a 30-year-old female presents to our ED for evaluation of swelling to right upper lip and right lower lip. Minimal swelling to the right lateral aspect of her tongue. Patient has been experiencing some dental pain. She currently has an appointment scheduled for dentist. Patient applied Advil liquid gel directly to her involved tooth. Approximately an hour later she observed swelling. No difficulty swallowing. No difficulty breathing. No wheezing. Patient has isolated right upper and right lower lip swelling. There is very minimal swelling to her right lateral tongue. No other symptoms. Patient only reports allergy to MRI dye. Symptoms are mild to moderate in intensity. No associated chest pain or shortness of breath. No nausea vomiting or diaphoresis. No rash. No pruritus. Patient voices no other complaints or concerns at this time. Timing/Duration: today Severity: moderate Modifying Factors: Improves With: nothing Associated Symptoms: denies symptoms Allergies/Adverse Reactions: ibuprofen [From Advil] Adverse Reaction (Severe, Verified 07/17/21 03:27) Swelling of Tongue and Lips mri dye Allergy (Intermediate, Uncoded 07/16/21 23:03) Hives Hx Tetanus, Diphtheria Vaccination/Date Given: Yes Hx Influenza Vaccination/Date Given: No Hx Pneumococcal Vaccination/Date Given: No Immunizations Up to Date: Yes Travel Risk - International Travel Have you traveled outside of the country in past 3 weeks: No - Coronavirus Screening Are you exhibiting any of the following symptoms?: No Close contact with a COVID-19 positive Pt in past 14-21 Days: No - Vaccine Status Have you recieved a Covid-19 vaccination: No - Review of Systems Constitutional: No Symptoms, No Fever, No Chills Eyes: No Symptoms Ears, Nose, & Throat: No Symptoms Respiratory: No Symptoms, No Cough, No Dyspnea Cardiac: No Symptoms, No Chest Pain, No Edema, No Syncope Abdominal/Gastrointestinal: No Symptoms, No Abdominal Pain, No Nausea, No Vomiting, No Diarrhea Genitourinary Symptoms: No Symptoms, No Dysuria Musculoskeletal: No Symptoms, No Back Pain, No Neck Pain Skin: No Symptoms, No Rash Neurological: No Symptoms, No Dizziness, No Focal Weakness, No Sensory Changes Psychological: No Symptoms Endocrine: No Symptoms Hematologic/Lymphatic: No Symptoms Immunological/Allergic: No Symptoms All Other Systems: Reviewed and Negative - Past Medical History Pertinent Past Medical History: Yes Neurological History: Other ENT History: No Pertinent History Cardiac History: No Pertinent History, Hypertension Respiratory History: No Pertinent History Endocrine Medical History: No Pertinent History Musculoskeletal History: No Pertinent History GI Medical History: No Pertinent History History: No Pertinent History Psycho-Social History: Anxiety, Depression Female Reproductive Disorders: No Pertinent History Other Medical History: brain tumor. hydrocephalus. papilledema - Past Surgical History Past Surgical History: Yes Neuro Surgical History: Other Cardiac: No Pertinent History Respiratory: No Pertinent History Gastrointestinal: No Pertinent History Genitourinary: No Pertinent History Musculoskeletal: No Pertinent History Female Surgical History: Section, Tubal Ligation Other Surgical History: brain biopsy 2016. brain tumor removal - pineal 2017 - Social History Smoking Status: Current every day smoker How long have you smoked: 10 years Exposure to second hand smoke: Yes Drug Use: none Patient Lives Alone: No - Female History Hx Last Menstrual Period: 05/23 Hx Now: No - Nursing Vital Signs Nursing Vital Signs: Initial Vital Signs Temperature 97.8 F 07/16/21 22:47 Pulse Rate 106 H 07/16/21 22:47 Respiratory Rate 18 07/16/21 22:47 Blood Pressure 123/92 07/16/21 22:47 O2 Sat by Pulse Oximetry 99 07/16/21 22:47 Pain Scale Pain Intensity 0 - Physical Exam General Appearance: no apparent distress, alert, other (Swelling to right upper lip and right lower lip. Right lateral aspect of tongue. Oropharynx clear. No intraoral lesions. Uvula at midline.) Eye Exam: PERRL/EOMI, eyes nml inspection Ears, Nose, Throat Exam: normal ENT inspection, TMs normal, pharynx normal, moist mucous membranes, No pharyngeal erythema Neck Exam: normal inspection, non-tender, supple, full range of motion Respiratory Exam: normal breath sounds, lungs clear, airway intact, No respiratory distress Cardiovascular Exam: regular rate/rhythm, normal heart sounds, normal peripheral pulses Gastrointestinal/Abdomen Exam: soft, normal bowel sounds, No tenderness, No mass Back Exam: normal inspection, normal range of motion, No CVA tenderness, No vertebral tenderness Extremity Exam: normal inspection, normal range of motion, pelvis stable Neurologic Exam: alert, 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, cooperative, normal mood/affect, nml cerebellar function, nml station & gait, sensation nml, No motor deficits Skin Exam: normal color, warm, dry, No rash Lymphatic Exam: No adenopathy SpO2 Interpretation: normal SpO2: 98 O2 Delivery: Room Air - Course Nursing assessment & vital signs reviewed: Yes Ordered Tests: Active Orders 24 hr Category Date Time Status Pulse Oximetry (ED) STAT Care 07/16/21 23:01 Active Medication Summary Discontinued Medications Generic Name Dose Route Start Last Admin Trade Name Freq PRN Reason Stop Dose Admin Methylprednisolone Sodium 0 mg 07/16/21 23:01 Succinate 125 mg/ Sterile IV 07/16/21 23:02 Water 2 ml STAT ONE Methylprednisolone Sodium 0 mg 07/16/21 23:44 07/16/21 23:51 Succinate 125 mg/ Sterile IM 07/16/21 23:45 125 mg Water 2 ml STAT ONE Administration Diphenhydramine HCl 50 mg 07/16/21 23:01 Benadryl 50 Mg/Ml IV 07/16/21 23:02 STAT ONE Diphenhydramine HCl 50 mg 07/16/21 23:43 07/16/21 23:52 Benadryl 50 Mg/Ml IM 07/16/21 23:44 50 mg STAT ONE Administration Diphenhydramine HCl Confirm 07/16/21 23:46 Benadryl 50 Mg/Ml Administered 07/16/21 23:47 Dose 50 mg .ROUTE .STK-MED ONE Famotidine 20 mg 07/16/21 23:01 Pepcid 20 Mg Vial IV 07/16/21 23:02 STAT ONE Famotidine 20 mg 07/16/21 23:43 07/16/21 23:52 Pepcid 20 Mg PO 07/16/21 23:44 20 mg STAT ONE Administration Famotidine Confirm 07/16/21 23:46 Pepcid 20 Mg Administered 07/16/21 23:47 Dose 20 mg .ROUTE .STK-MED ONE Methylprednisolone Sodium Succinate Confirm 07/16/21 23:46 Solu-Medrol Administered 07/16/21 23:47 Dose 125 mg .ROUTE .STK-MED ONE Sterile Water Confirm 07/16/21 23:46 Sterile H2o 10 Ml Administered 07/16/21 23:47 Dose 10 ml IJ .STK-MED ONE - Progress Progress: improved Progress Note: Patient observed for approximately 5 hours. Lip swelling significantly improved. Patient resting comfortably. Tongue swelling resolved. Oral airway patent. No intraoral lesions. Lungs are clear. Vital stable. We will send patient home with prescription for EpiPen, Pepcid, and prednisone. She will take [id number] Benadryl as needed for itching. Patient requesting discharge. She voices no other complaints or concerns at this time. We updated patient's allergy profile to include ibuprofen. Patient agrees to follow-up with her primary care doctor within 48 hours for reevaluation. Portions of this note were created with voice recognition technology. There may be grammatical, spelling, punctuation or sound alike errors 07/17/21 03:30 Counseled pt/family regarding: diagnosis, need for follow-up - Departure Departure Disposition: Home Clinical Impression: Swollen lip, Angioedema Condition: Stable Critical Care Time: No Referrals: RANDI PADILLA JR [Primary Care Provider] - Additional Instructions: Discharge/Care Plan RIKY BERKOWITZ was seen on 07/17/21 in the Emergency Room. The patient was counseled regarding Diagnosis,Lab results, Imaging studies, need for follow up and when to return to the Emergency Room. Prescriptions given: Discharge Note I have spoken with the patient and/or caregivers. I have explained the patient's condition, diagnosis and treatment plan based on the information available to me at this time. I have answered the patient's and/or caregiver's questions and addressed any concerns. The patient and/or caregivers have as good understanding of the patient's diagnosis, condition and treatment plan as can be expected at this point. The vital signs have been stable. The patient's condition is stable and appropriate for discharge from the emergency department. The patient will pursue further outpatient evaluation with the primary care physician or other designated or consulting physician as outlined in the d ischarge instructions. The patient and/or caregivers are agreeable to this plan of care and follow-up instructions have been explained in detail. The patient and/or caregivers have received these instruction. The patient/and or caregivers are aware that any significant change in condition or worsening of symptoms should prompt an immediate return to this or the closest emergency department or call 911. Prescriptions: Diphenhydramine HCl 25 mg [Benadryl 25 mg Capsule] 25 mg PO Q6H PRN PRN 5 Days #20 PRN Reason: Itching Epinephrine [Auvi-Q] 0.3 mg IJ DAILY PRN PRN 1 Days #2 dose PRN Reason: Allergies Prednisone 10 mg [Deltasone 10 mg] 40 mg PO DAILY 3 Days #12 tablet Famotidine 20 mg [Pepcid 20 MG] 20 mg PO BID 7 Days #14 tablet
[2021-07-17 03:26] VITALS: BP 131/89; PULSE 102
[2021-07-17] MEDS ORDERED: NORCO 5/325 MG ONE (03:31)
[2021-07-17] MEDS ORDERED: NORCO 5/325 MG PO ONE (03:47)
== END 2021-07-17 03:55 | disposition home or self-care (01) ==
LOC: ED 22:30
DX: T78.3XXA Angioneurotic edema, initial encounter (principal); R22.9 Localized swelling, mass and lump, unspecified
CPT/HCPCS: 94760; 96372; 99284; J1200; J2930; A9270-GY

== ENCOUNTER 2021-08-02 13:24 | Emergency (ER) | payer MEDICARE ==
[2021-08-02] MEDS ORDERED: Augmentin 875-125 Tablet PO ONE (13:50)
--- NOTE | 2021-08-02 13:55 | ERPHSYRPT ---
- History of Present Illness Time Seen by Provider: 08/02/21 13:29 Source: patient Exam Limitations: no limitations Patient Subjective Stated Complaint: Pt has a toothache that is causing a headache, tooth is the top third from the back on the left Triage Nursing Assessment: Pt was brought to the ER by her cousin, hypertensive, rates pain as 8-9/10, tooth pain, head ache, unable to sleep, states that she is seeing the dentist this week, denies any other issues at this time Physician History: 30 years old female with history of dental caries presented in the ER with chief complaint of left upper premolar and molar area pain and gingival swelling started last night and gradually worsening, moderate to severe sharp throbbing pain, increased sensitivity to hot and cold. No facial swelling Timing/Duration: gradual onset, yesterday Severity: moderate ENT Location: dental Prearrival Treatment: no prearrival treatment Associated Symptoms: tooth pain Allergies/Adverse Reactions: ibuprofen [From Advil] Adverse Reaction (Severe, Verified 07/17/21 03:27) Swelling of Tongue and Lips mri dye Allergy (Intermediate, Uncoded 07/16/21 23:03) Hives Hx Tetanus, Diphtheria Vaccination/Date Given: Yes Hx Influenza Vaccination/Date Given: No Hx Pneumococcal Vaccination/Date Given: No Travel Risk - International Travel Have you traveled outside of the country in past 3 weeks: No - Coronavirus Screening Are you exhibiting any of the following symptoms?: No Symptoms: Shortness of Breath - Vaccine Status Have you recieved a Covid-19 vaccination: No - Review of Systems Constitutional: No Symptoms Eyes: No Symptoms Ears, Nose, & Throat: Mouth Swelling Respiratory: No Symptoms Cardiac: No Symptoms Abdominal/Gastrointestinal: No Symptoms Musculoskeletal: No Symptoms Neurological: No Symptoms Hematologic/Lymphatic: No Symptoms Immunological/Allergic: No Symptoms - Past Medical History Pertinent Past Medical History: Yes Neurological History: Other ENT History: No Pertinent History Cardiac History: No Pertinent History, Hypertension Respiratory History: No Pertinent History Endocrine Medical History: No Pertinent History Musculoskeletal History: No Pertinent History GI Medical History: No Pertinent History History: No Pertinent History Psycho-Social History: Anxiety, Depression Female Reproductive Disorders: No Pertinent History Other Medical History: brain tumor. hydrocephalus. papilledema - Past Surgical History Past Surgical History: Yes Neuro Surgical History: Other Cardiac: No Pertinent History Respiratory: No Pertinent History Gastrointestinal: No Pertinent History Genitourinary: No Pertinent History Musculoskeletal: No Pertinent History Female Surgical History: Section, Tubal Ligation Other Surgical History: brain biopsy 2016. brain tumor removal - pineal 2017 - Social History Smoking Status: Current every day smoker How long have you smoked: 10 years Exposure to second hand smoke: Yes Drug Use: none Patient Lives Alone: Yes - Female History Hx Last Menstrual Period: 07/23/2021 Hx Now: No - Nursing Vital Signs Nursing Vital Signs: Initial Vital Signs Temperature 97.7 F 08/02/21 13:31 Pulse Rate 89 08/02/21 13:31 Blood Pressure 164/87 08/02/21 13:31 O2 Sat by Pulse Oximetry 97 08/02/21 13:31 Pain Scale Pain Intensity 8 - Physical Exam General Appearance: no apparent distress, alert Eye Exam: bilateral eye: normal inspection, PERRL, EOMI Ear Exam: bilateral ear: auricle normal, canal normal, TM normal Nasal Exam: normal inspection, No sinus tenderness Throat Exam: pharynx normal, moist mucus membranes (Left upper premolar and molar area tenderness with some caries and gingival swelling without fluctuation.) Neck Exam: normal inspection, supple, full range of motion Cardiovascular/Respiratory Exam: normal breath sounds, regular rate/rhythm Neurologic Exam: alert, 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, cooperative, extension forester II-XII nml as tested, normal mood/affect Skin Exam: normal color SpO2 Interpretation: normal SpO2: 97 O2 Delivery: Room Air Ordered Tests: Medication Summary Discontinued Medications Generic Name Dose Route Start Last Admin Trade Name Freq PRN Reason Stop Dose Admin Amoxicillin/Clavulanate Potassium 875 mg 08/02/21 13:50 08/02/21 14:29 Augmentin 875-125 Tablet PO 08/02/21 13:51 875 mg STAT ONE Administration Amoxicillin/Clavulanate Potassium Confirm 08/02/21 14:29 Augmentin 875-125 Tablet Administered 08/02/21 14:30 Dose 875 mg .ROUTE .STK-MED ONE Oxycodone/Acetaminophen 1 tab 08/02/21 14:13 08/02/21 14:29 Percocet Tablet 5/325mg PO 08/02/21 14:14 1 tab STAT ONE Administration Oxycodone/Acetaminophen Confirm 08/02/21 14:29 Percocet Tablet 5/325mg Administered 08/02/21 14:30 Dose 1 tab .ROUTE .STK-MED ONE - Progress Progress: pain not gone completely Progress Note: 08/02/21 14:16 She is given Percocet here for symptomatic relief as patient is allergic to NSAIDs and started on Augmentin. Recommended outpatient follow-up. Will give short supply of tramadol for pain control. Counseled pt/family regarding: diagnosis, need for follow-up - Departure Departure Disposition: Home Clinical Impression: Dental infection Condition: Stable Critical Care Time: No Referrals: RANDI PADILLA JR [Primary Care Provider] - Follow Up with PCP/3 days FABRICIO SPAULDING DDS [NON-STAFF PHY W/O PRIVILEGES] - (Tomorrow for reevaluation) Instructions: Tooth Abscess (DC), Dental Pain (DC) Additional Instructions: Take Tylenol/pain medicine as needed. Follow-up with your dentist for reevaluation. Return to ER for worsening pain, swelling, difficulty swallowing, fever chills etc. Prescriptions: Amoxicillin/Potassium Clav [Augmentin 875-125 Tablet] 875 mg PO BID 7 Days #14 tablet Tramadol HCl 50 mg [Ultram 50 mg] 50 mg PO TID 3 Days #10 tablet
[2021-08-02] MEDS ORDERED: PERCOCET TABLET 5/325MG PO ONE (14:13)
[2021-08-02] MEDS ORDERED: Augmentin 875-125 Tablet ONE (14:29)
[2021-08-02] MEDS ORDERED: PERCOCET TABLET 5/325MG ONE (14:29)
[2021-08-02 14:32] VITALS: BP 131/87; PULSE 84
[2021-08-02 14:59] VITALS: O2SAT 97
== END 2021-08-02 14:36 | disposition home or self-care (01) ==
LOC: ED 13:24
DX: K04.7 Periapical abscess without sinus (principal); K08.89 Other specified disorders of teeth and supporting structures
CPT/HCPCS: 99283; A9270-GY

== ENCOUNTER 2021-12-13 10:24 | Emergency (ER) | payer MEDICARE ==
[2021-12-13] MEDS ORDERED: Ativan 1 MG PO ONE (10:46)
[2021-12-13] MEDS ORDERED: Ativan 1 MG ONE (10:50)
--- NOTE | 2021-12-13 10:57 | ERPHSYRPT ---
- History of Present Illness Time Seen by Provider: 12/13/21 10:52 Source: patient, family Exam Limitations: no limitations Patient Subjective Stated Complaint: PT states "I think I had a seizure last night and I just do not feel well. 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 But something is wrong today. 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 I last used meth three days ago." Triage Nursing Assessment: Pt presented alert and oriented X 3, skin pwd Pt ambulates with an upright steady gait, able to speak in clear full sentences pt speaking rapidly and trembling. Physician History: pt has hx of pineal gland tumor treated with radiation at [facility] but has stopped f/u x 3 years. she has a mild headache and no focal neuro findings some N no V and prior papiledema. thinks she may have had seizure last pm in her sleep but none actually seen and just feels jittery but has been taking meth last 3 days. no chest pain or soBreath no abd pain, nontender. Timing/Duration: day(s) Severity: moderate Character of Deficits: none Deficits: no difficulties Baseline/Normal Cognition: alert 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 Current Cognition: alert 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 Baseline Gait: walks w/o assistance Associated Symptoms: nausea Allergies/Adverse Reactions: ibuprofen [From Advil] Adverse Reaction (Severe, Verified 07/17/21 03:27) Swelling of Tongue and Lips mri dye Allergy (Intermediate, Uncoded 07/16/21 23:03) Hives Home Medications: No Reportable Medications [No Reported Medications] 12/13/21 [History] Hx Tetanus, Diphtheria Vaccination/Date Given: Yes Hx Influenza Vaccination/Date Given: No Hx Pneumococcal Vaccination/Date Given: No Immunizations Up to Date: Yes Travel Risk - International Travel Have you traveled outside of the country in past 3 weeks: No - Coronavirus Screening Are you exhibiting any of the following symptoms?: No - Vaccine Status Have you recieved a Covid-19 vaccination: No - Review of Systems Constitutional: No Fever, No Chills Eyes: No Symptoms Ears, Nose, & Throat: No Symptoms Respiratory: No Cough, No Dyspnea Cardiac: No Chest Pain, No Edema, No Syncope Abdominal/Gastrointestinal: No Abdominal Pain, No Nausea, No Vomiting, No Diarrhea Genitourinary Symptoms: No Dysuria Musculoskeletal: No Symptoms, No Back Pain, No Neck Pain Skin: No Symptoms, No Rash Neurological: Headache, No Dizziness, No Focal Weakness, No Sensory Changes Psychological: No Symptoms Endocrine: No Symptoms Hematologic/Lymphatic: No Symptoms Immunological/Allergic: No Symptoms All Other Systems: Reviewed and Negative - Past Medical History Pertinent Past Medical History: Yes Neurological History: Other ENT History: No Pertinent History Cardiac History: No Pertinent History, Hypertension Respiratory History: No Pertinent History Endocrine Medical History: No Pertinent History Musculoskeletal History: No Pertinent History GI Medical History: No Pertinent History History: No Pertinent History Psycho-Social History: Anxiety, Depression Female Reproductive Disorders: No Pertinent History Other Medical History: brain tumor. hydrocephalus. papilledema - Past Surgical History Past Surgical History: Yes Neuro Surgical History: Other Cardiac: No Pertinent History Respiratory: No Pertinent History Gastrointestinal: No Pertinent History Genitourinary: No Pertinent History Musculoskeletal: No Pertinent History Female Surgical History: Section, Tubal Ligation Other Surgical History: brain biopsy 2015. brain tumor removal - pineal 2017 - Social History Smoking Status: Current every day smoker How long have you smoked: years Exposure to second hand smoke: Yes Drug Use: methamphetamines Patient Lives Alone: No - Female History Hx Last Menstrual Period: 12/13/2020 Hx Now: No - Nursing Vital Signs Nursing Vital Signs: Initial Vital Signs Temperature 98.4 F 12/13/21 10:33 Pulse Rate 123 H 12/13/21 10:33 Respiratory Rate 24 12/13/21 10:33 Blood Pressure 132/86 12/13/21 10:33 O2 Sat by Pulse Oximetry 100 12/13/21 10:33 Pain Scale Pain Intensity 4 - Shelby Coma Scale Best Eye Response (Shelby): (4) open spontaneously Best Verbal Response (Shelby): (5) oriented Best Motor Response (Harleen): (6) obeys commands Harleen Total: 15 - Physical Exam General Appearance: no apparent distress, alert Eye Exam: bilateral eye: PERRL, EOMI Ears, Nose, Throat Exam: normal ENT inspection, moist mucous membranes Neck Exam: normal inspection, non-tender, supple Respiratory: normal breath sounds, lungs clear, airway intact, No respiratory distress Cardiovascular: regular rate/rhythm, No edema Gastrointestinal: soft, No tenderness, No distention Pelvic Exam: deferred Rectal Exam: deferred Back Exam: normal inspection Extremity Exam: normal inspection, No pedal edema Peripheral Pulses: carotid (R): 2+, carotid (L): 2+, femoral (R): 2+, femoral (L): 2+, dorsalis-pedis (R): 2+, dorsalis-pedis (L): 2+ Mental Status: alert, 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: normal speech, PERRL, tongue midline Coordination/Gait: normal finger to nose, normal gait Motor/Sensory: no motor deficit, no sensory deficit, no pronator drift DTR: bicep (R): 2+, bicep (L): 2+, tricep (R): 2+, tricep (L): 2+, knee (R): 2+, knee (L): 2+, ankle (R): 2+, ankle (L): 2+ Skin Exam: normal color, warm, dry, No rash SpO2 Interpretation: normal SpO2: 100 O2 Delivery: Room Air - Course Nursing assessment & vital signs reviewed: Yes EKG Interpreted by Me: Sinus Tach, NORMAL AXIS, NORMAL INTERVALS, Non-specific ST Changes Ordered Tests: Active Orders 24 hr Category Date Time Status Chief Lifestyle Officer STAT Care 12/13/21 10:59 Active Clean Catch Urine Specimen STAT Care 12/13/21 10:58 Active EKG-ER Only STAT Care 12/13/21 10:58 Active IV Insertion STAT Care 12/13/21 10:58 Active Pulse Oximetry (ED) STAT Care 12/13/21 10:58 Active HEAD WITHOUT CONTRAST [CT] Stat Exams 12/13/21 10:59 Taken ACETAMINOPHEN Stat Lab 12/13/21 11:00 Completed CBC W DIFF Stat Lab 12/13/21 11:00 Completed CK (IN-HOUSE) [CK-Creatinine Phosphokinase] Stat Lab 12/13/21 11:00 Completed CMP Stat Lab 12/13/21 11:00 Completed ETHYL ALCOHOL Stat Lab 12/13/21 11:00 Completed Erythrocyte Sedimentation Rate Stat Lab 12/13/21 11:00 Completed HCG QUALITATIVE,SERUM Stat Lab 12/13/21 11:00 Completed Lactic Acid Routine Lab 12/13/21 13:26 Completed Lactic Acid Stat Lab 12/13/21 10:58 Completed Lactic Acid Stat Lab 12/13/21 13:48 Received Manual Differential NC Stat Lab 12/13/21 11:00 Completed POCT GLUCOSE Stat Lab 12/13/21 10:52 Completed SALICYLATE Stat Lab 12/13/21 11:00 Completed T4 (Thyroxine) Stat Lab 12/13/21 11:00 Completed TSH [TSH, 3RD Generation] Stat Lab 12/13/21 11:00 Completed UA W/RFX UR CULTURE Stat Lab 12/13/21 11:06 Completed Urine Triage Profile Stat Lab 12/13/21 11:06 Completed Medication Summary Generic Name Dose Route Start Last Admin Trade Name Freq PRN Reason Stop Dose Admin Magnesium Sulfate/Dextrose 100 mls @ 100 mls/hr 12/13/21 11:00 12/13/21 12:05 Magnesium 1 Gm / 100 Ml D5w IV 12/13/21 12:59 100 mls/hr Q1H KEELY Administration Discontinued Medications Generic Name Dose Route Start Last Admin Trade Name Freq PRN Reason Stop Dose Admin Sodium Chloride 1,000 mls @ 999 mls/hr 12/13/21 10:58 12/13/21 12:25 Sodium Chloride 0.9% 1000 Ml IV 12/13/21 11:58 Infused .Q1H1M STA Infusion Sodium Chloride Confirm 12/13/21 11:09 Sodium Chloride 0.9% 1000 Ml Administered 12/13/21 11:10 Dose 1,000 mls @ ud .ROUTE .STK-MED ONE Sodium Chloride 1,000 mls @ 999 mls/hr 12/13/21 12:29 Sodium Chloride 0.9% 1000 Ml IV 12/13/21 13:29 .Q1H1M STA Lorazepam 1 mg 12/13/21 10:46 12/13/21 10:51 Lorazepam 1 Mg Tablet PO 12/13/21 10:47 1 mg STAT ONE Administration Lorazepam Confirm 12/13/21 10:50 Lorazepam 1 Mg Tablet Administered 12/13/21 10:51 Dose 1 mg .ROUTE .STK-MED ONE Ondansetron HCl 4 mg 12/13/21 10:58 12/13/21 11:13 Ondansetron Hcl 4 Mg/2 Ml Vial IV 12/13/21 10:59 4 mg STAT ONE Administration Ondansetron HCl Confirm 12/13/21 11:09 Ondansetron Hcl 4 Mg/2 Ml Vial Administered 12/13/21 11:10 Dose 4 mg .ROUTE .STK-MED ONE Lab/Rad Data: Laboratory Result Diagrams 12/13/21 11:00 12/13/21 11:00 Laboratory Results 12/13/21 12/13/21 12/13/21 Range/Units 13:26 11:06 11:06 WBC (4.0-10.5) K/mm3 RBC (4.1-5.4) M/mm3 Hgb (12.0-16.0) gm/dl Hct (35-47) % MCV (78-100) fl MCH (26-32) pg MCHC (32-36) g/dl RDW (11.5-14.0) % Plt Count (150-450) K/mm3 MPV (7.5-11.0) fl Segmented Neutrophils (36.0-66.0) % Lymphocytes (Manual) (24-44) % Eosinophils (Manual) (0.00-3.0) % Platelet Estimate (NORMAL) RBC Morphology ESR (0-20) mm/hr Sodium (137-145) mmol/L Potassium (3.5-5.1) mmol/L Chloride (98-107) mmol/L Carbon Dioxide (22-30) mmol/L Anion Gap (5-15) MEQ/L BUN (7-17) mg/dL Creatinine (0.52-1.04) mg/dL Estimated GFR ML/MIN Glucose (74-106) mg/dL POC Glucometer (74 to 106) mg/dL Lactic Acid 1.1 (0.4-2.0) Calcium (8.4-10.2) mg/dL Total Bilirubin (0.2-1.3) mg/dL AST (14-36) U/L ALT (0-35) U/L Alkaline Phosphatase (38-126) U/L Creatine Kinase (30-135) U/L Serum Total Protein (6.3-8.2) g/dL Albumin (3.5-5.0) g/dL Thyroxine (T4) (5.53-10.96) ug/dL TSH 3rd Generation (0.47-4.68) mIU/L Serum , Qual (Negative) Urine Color STRAW (YELLOW) Urine Appearance CLEAR (CLEAR) Urine pH 6.0 (5-6) Ur Specific [employer] 1.004 (1.005-1.025) Urine Protein NEGATIVE (Negative) Urine Ketones NEGATIVE (NEGATIVE) Urine Blood SMALL (0-5) Hermes/ul Urine Nitrite NEGATIVE (NEGATIVE) Urine Bilirubin NEGATIVE (NEGATIVE) Urine Urobilinogen NEGATIVE (0-1) mg/dL Ur Leukocyte Esterase NEGATIVE (NEGATIVE) Urine WBC (Auto) 0-2 (0-5) /HPF Urine RBC (Auto) NONE (0-2) /HPF U Epithel Cells (Auto) RARE (FEW) /HPF Urine Bacteria (Auto) NONE (NEGATIVE) /HPF Urine Culture Reflexed NO (NO) Urine Glucose NEGATIVE (NEGATIVE) mg/dL Salicylates (2-20) mg/dL Urine Opiates Level NEGATIVE (NEGATIVE) Ur Methadone NEGATIVE (NEGATIVE) Acetaminophen (10-30) ug/ml Urine Barbiturates NEGATIVE (NEGATIVE) Ur Phencyclidine (PCP) NEGATIVE (NEGATIVE) Urine Amphetamine POSITIVE (NEGATIVE) U Benzodiazepine Level NEGATIVE (NEGATIVE) Urine Cocaine NEGATIVE (NEGATIVE) Urine Marijuana (THC) NEGATIVE (NEGATIVE) Ethyl Alcohol (0-10) mg/dL 12/13/21 12/13/21 12/13/21 Range/Units 11:00 11:00 11:00 WBC (4.0-10.5) K/mm3 RBC (4.1-5.4) M/mm3 Hgb (12.0-16.0) gm/dl Hct (35-47) % MCV (78-100) fl MCH (26-32) pg MCHC (32-36) g/dl RDW (11.5-14.0) % Plt Count (150-450) K/mm3 MPV (7.5-11.0) fl Segmented Neutrophils (36.0-66.0) % Lymphocytes (Manual) (24-44) % Eosinophils (Manual) (0.00-3.0) % Platelet Estimate (NORMAL) RBC Morphology ESR (0-20) mm/hr Sodium (137-145) mmol/L Potassium (3.5-5.1) mmol/L Chloride (98-107) mmol/L Carbon Dioxide (22-30) mmol/L Anion Gap (5-15) MEQ/L BUN (7-17) mg/dL Creatinine (0.52-1.04) mg/dL Estimated GFR ML/MIN Glucose (74-106) mg/dL POC Glucometer (74 to 106) mg/dL Lactic Acid (0.4-2.0) Calcium (8.4-10.2) mg/dL Total Bilirubin (0.2-1.3) mg/dL AST (14-36) U/L ALT (0-35) U/L Alkaline Phosphatase (38-126) U/L Creatine Kinase 32 (30-135) U/L Serum Total Protein (6.3-8.2) g/dL Albumin (3.5-5.0) g/dL Thyroxine (T4) 11.8 H (5.53-10.96) ug/dL TSH 3rd Generation 0.386 L (0.47-4.68) mIU/L Serum , Qual NEGATIVE (Negative) Urine Color (YELLOW) Urine Appearance (CLEAR) Urine pH (5-6) Ur Specific [employer] (1.005-1.025) Urine Protein (Negative) Urine Ketones (NEGATIVE) Urine Blood (0-5) Hermes/ul Urine Nitrite (NEGATIVE) Urine Bilirubin (NEGATIVE) Urine Urobilinogen (0-1) mg/dL Ur Leukocyte Esterase (NEGATIVE) Urine WBC (Auto) (0-5) /HPF Urine RBC (Auto) (0-2) /HPF U Epithel Cells (Auto) (FEW) /HPF Urine Bacteria (Auto) (NEGATIVE) /HPF Urine Culture Reflexed (NO) Urine Glucose (NEGATIVE) mg/dL Salicylates (2-20) mg/dL Urine Opiates Level (NEGATIVE) Ur Methadone (NEGATIVE) Acetaminophen (10-30) ug/ml Urine Barbiturates (NEGATIVE) Ur Phencyclidine (PCP) (NEGATIVE) Urine Amphetamine (NEGATIVE) U Benzodiazepine Level (NEGATIVE) Urine Cocaine (NEGATIVE) Urine Marijuana (THC) (NEGATIVE) Ethyl Alcohol (0-10) mg/dL 12/13/21 12/13/21 12/13/21 Range/Units 11:00 11:00 10:58 WBC 5.1 (4.0-10.5) K/mm3 RBC 4.24 (4.1-5.4) M/mm3 Hgb 12.7 (12.0-16.0) gm/dl Hct 38.1 (35-47) % MCV 89.9 (78-100) fl MCH 30.0 (26-32) pg MCHC 33.3 (32-36) g/dl RDW 14.6 H (11.5-14.0) % Plt Count 303 (150-450) K/mm3 MPV 10.1 (7.5-11.0) fl Segmented Neutrophils 91 H (36.0-66.0) % Lymphocytes (Manual) 8 L (24-44) % Eosinophils (Manual) 1 (0.00-3.0) % Platelet Estimate NORMAL (NORMAL) RBC Morphology NORMAL ESR 16 (0-20) mm/hr Sodium 136 L (137-145) mmol/L Potassium 3.9 (3.5-5.1) mmol/L Chloride 101 (98-107) mmol/L Carbon Dioxide 24 (22-30) mmol/L Anion Gap 15.0 (5-15) MEQ/L BUN 12 (7-17) mg/dL Creatinine 0.76 (0.52-1.04) mg/dL Estimated GFR > 60.0 ML/MIN Glucose 81 (74-106) mg/dL POC Glucometer (74 to 106) mg/dL Lactic Acid 3.1 H (0.4-2.0) Calcium 9.9 (8.4-10.2) mg/dL Total Bilirubin 0.40 (0.2-1.3) mg/dL AST 20 (14-36) U/L ALT 17 (0-35) U/L Alkaline Phosphatase 74 (38-126) U/L Creatine Kinase (30-135) U/L Serum Total Protein 7.6 (6.3-8.2) g/dL Albumin 4.5 (3.5-5.0) g/dL Thyroxine (T4) (5.53-10.96) ug/dL TSH 3rd Generation (0.47-4.68) mIU/L Serum , Qual (Negative) Urine Color (YELLOW) Urine Appearance (CLEAR) Urine pH (5-6) Ur Specific [employer] (1.005-1.025) Urine Protein (Negative) Urine Ketones (NEGATIVE) Urine Blood (0-5) Hermes/ul Urine Nitrite (NEGATIVE) Urine Bilirubin (NEGATIVE) Urine Urobilinogen (0-1) mg/dL Ur Leukocyte Esterase (NEGATIVE) Urine WBC (Auto) (0-5) /HPF Urine RBC (Auto) (0-2) /HPF U Epithel Cells (Auto) (FEW) /HPF Urine Bacteria (Auto) (NEGATIVE) /HPF Urine Culture Reflexed (NO) Urine Glucose (NEGATIVE) mg/dL Salicylates < 1.0 L (2-20) mg/dL Urine Opiates Level (NEGATIVE) Ur Methadone (NEGATIVE) Acetaminophen < 10 L (10-30) ug/ml Urine Barbiturates (NEGATIVE) Ur Phencyclidine (PCP) (NEGATIVE) Urine Amphetamine (NEGATIVE) U Benzodiazepine Level (NEGATIVE) Urine Cocaine (NEGATIVE) Urine Marijuana (THC) (NEGATIVE) Ethyl Alcohol < 10 (0-10) mg/dL 12/13/21 Range/Units 10:52 WBC (4.0-10.5) K/mm3 RBC (4.1-5.4) M/mm3 Hgb (12.0-16.0) gm/dl Hct (35-47) % MCV (78-100) fl MCH (26-32) pg MCHC (32-36) g/dl RDW (11.5-14.0) % Plt Count (150-450) K/mm3 MPV (7.5-11.0) fl Segmented Neutrophils (36.0-66.0) % Lymphocytes (Manual) (24-44) % Eosinophils (Manual) (0.00-3.0) % Platelet Estimate (NORMAL) RBC Morphology ESR (0-20) mm/hr Sodium (137-145) mmol/L Potassium (3.5-5.1) mmol/L Chloride (98-107) mmol/L Carbon Dioxide (22-30) mmol/L Anion Gap (5-15) MEQ/L BUN (7-17) mg/dL Creatinine (0.52-1.04) mg/dL Estimated GFR ML/MIN Glucose (74-106) mg/dL POC Glucometer 70 L (74 to 106) mg/dL Lactic Acid (0.4-2.0) Calcium (8.4-10.2) mg/dL Total Bilirubin (0.2-1.3) mg/dL AST (14-36) U/L ALT (0-35) U/L Alkaline Phosphatase (38-126) U/L Creatine Kinase (30-135) U/L Serum Total Protein (6.3-8.2) g/dL Albumin (3.5-5.0) g/dL Thyroxine (T4) (5.53-10.96) ug/dL TSH 3rd Generation (0.47-4.68) mIU/L Serum , Qual (Negative) Urine Color (YELLOW) Urine Appearance (CLEAR) Urine pH (5-6) Ur Specific [employer] (1.005-1.025) Urine Protein (Negative) Urine Ketones (NEGATIVE) Urine Blood (0-5) Hermes/ul Urine Nitrite (NEGATIVE) Urine Bilirubin (NEGATIVE) Urine Urobilinogen (0-1) mg/dL Ur Leukocyte Esterase (NEGATIVE) Urine WBC (Auto) (0-5) /HPF Urine RBC (Auto) (0-2) /HPF U Epithel Cells (Auto) (FEW) /HPF Urine Bacteria (Auto) (NEGATIVE) /HPF Urine Culture Reflexed (NO) Urine Glucose (NEGATIVE) mg/dL Salicylates (2-20) mg/dL Urine Opiates Level (NEGATIVE) Ur Methadone (NEGATIVE) Acetaminophen (10-30) ug/ml Urine Barbiturates (NEGATIVE) Ur Phencyclidine (PCP) (NEGATIVE) Urine Amphetamine (NEGATIVE) U Benzodiazepine Level (NEGATIVE) Urine Cocaine (NEGATIVE) Urine Marijuana (THC) (NEGATIVE) Ethyl Alcohol (0-10) mg/dL - Progress Progress: improved, re-examined Progress Note: 12/13/21 12:42 pt reports feeling better already and no longer jittery. She is going to try PO challenge now. We discussed that although there is no observed seizure she is at risk and gave the option of going emprically on the keppra or topimax until she can see her neurologist. Also discussed headaches and that we have not determine a cause. She prefers to wait and will contact her neuro this week for follow-up rather than any furhter w/u in ER or observation at this time and has the capacity to make this choice. 12/13/21 12:49 12/13/21 13:38 HR coming down into 90s at rest now. awaiting cpk since had pos amp 12/13/21 14:00 pt states symptoms resolving and observed to roxie diet in er Counseled pt/family regarding: drug and/or alcohol abuse, lab results, diagnosis, need for follow-up, rad results - Departure Departure Disposition: Home Clinical Impression: Headache, elevated thyroid hormone, meth use, history of pineal tumor and seizures Condition: Good Critical Care Time: No Referrals: RANDI PADILLA JR [NON-STAFF PHY W/O PRIVILEGES] - Follow up/PCP as directed Instructions: Hyperthyroidism (Overactive Thyroid), Seizures, Adult (DC), Drug Abuse and Drug Addiction (DC), Headache, Adult (DC) Additional Instructions: contact your neurologist for follow-up this week and to consider whether resuming seizure meds and which type. return meantime if any seizures observed or any other symptoms of concern or if headache not resolving. do not take any more meth and seek counseling for that since it could contribute to seizures. followup with your Dr. for thyroid workup and treatment also.
[2021-12-13] MEDS ORDERED: Sodium Chloride 0.9% 1000 ML 1,000 ML IV STA ×2 (10:58→12:29)
[2021-12-13] MEDS ORDERED: Zofran 4 MG/2 ML VIAL IV ONE (10:58)
[2021-12-13] MEDS ORDERED: Zofran 4 MG/2 ML VIAL ONE (11:09)
[2021-12-13] MEDS ORDERED: Sodium Chloride 0.9% 1000 ML 1,000 ML ONE ×2 (11:09→14:01)
[2021-12-13] MEDS ORDERED: Magnesium 1 Gm / 100 Ml D5W*** 100 ML IV ONE ×2 (11:09→12:04)
[2021-12-13] MEDS: Magnesium 1 Gm / 100 Ml D5W*** 100 ML IV SCH ×2 (11:13→12:05)
[2021-12-13 11:27] LABS: Appearance CLEAR (CLEAR); Bilirubin NEGATIVE (NEGATIVE); Blood SMALL Ery/ul (0-5); Epithelial Cells RARE /HPF (FEW); Glucose NEGATIVE (NEGATIVE); Ketones NEGATIVE (NEGATIVE); Leukocyte Esterase NEGATIVE (NEGATIVE); Nitrite NEGATIVE (NEGATIVE); Protein,Urine Dip NEGATIVE (Negative); Specific Gravity 1.004 (1.005-1.025); Urobilinogen NEGATIVE mg/dL (0-1); WBC 0-2 /HPF (0-5)
[2021-12-13 11:28] LABS: Hematocrit 38.1 % (35-47); Hemoglobin 12.7 gm/dl (12.0-16.0); Mean Cell Volume 89.9 fl (78-100); Mean Corpuscular Hgb Concent. 33.3 g/dl (32-36); Mean Platelet Volume 10.1 fl (7.5-11.0); Platelet Count 303 K/mm3 (150-450); Red Blood Count 4.24 M/mm3 (4.1-5.4); Red Cell Distribution Width 14.6 % (11.5-14.0); White Blood Count 5.1 K/mm3 (4.0-10.5)
[2021-12-13 11:33] LABS: ACETAMINOPHEN < 10 ug/ml (10-30); ALBUMIN 4.5 g/dL (3.5-5.0); ALKALINE PHOSPHATASE 74 U/L (38-126); BLOOD UREA NITROGEN 12 mg/dL (7-17); CHLORIDE 101 mmol/L (98-107); Calcium 9.9 mg/dL (8.4-10.2); Carbon Dioxide 24 mmol/L (22-30); Creatinine 1 0.76 mg/dL (0.52-1.04); EST GLOMERULAR FILTRATION RATE > 60.0 ML/MIN; ETHYL ALCOHOL < 10 mg/dL (0-10); Glucose 81 mg/dL (74-106); Potassium 3.9 mmol/L (3.5-5.1); SALICYLATE < 1.0 mg/dL (2-20); SGOT/AST 20 U/L (14-36); SGPT/ALT 17 U/L (0-35); SODIUM 136 mmol/L (137-145); Total Protein 7.6 g/dL (6.3-8.2)
[2021-12-13 11:39] LABS: Barbiturate,Urine NEGATIVE (NEGATIVE); Benzodiazepine,Urine NEGATIVE (NEGATIVE); Cocaine,Urine NEGATIVE (NEGATIVE); Methadone,Urine NEGATIVE (NEGATIVE); Opiate,Urine NEGATIVE (NEGATIVE); PCP,Urine NEGATIVE (NEGATIVE); THC,Urine NEGATIVE (NEGATIVE)
[2021-12-13 12:07] LABS: T4 (Thyroxine) 11.8 ug/dL (5.53-10.96); TSH, 3RD Generation 0.386 mIU/L (0.47-4.68)
[2021-12-13 12:12] LABS: Erythrocyte Sedimentation Rate 16 mm/hr (0-20)
[2021-12-13 12:43] LABS: Amphetamine,Urine POSITIVE (NEGATIVE)
[2021-12-13 12:58] LABS: Eosinophil 1 % (0.00-3.0); Lymphocytes 8 % (24-44); Neutrophils 91 % (36.0-66.0); Platelet Estimate NORMAL (NORMAL); Total Cells Counted 100
[2021-12-13 14:03] VITALS: BP 128/76; PULSE 101
[2021-12-13 14:05] VITALS: O2SAT 100
--- NOTE | 2021-12-13 19:06 | XRAY ---
Indication: Headache and weakness. History pineal tumor. Multiple contiguous axial images obtained through the head without contrast. Comparison: June 03, 2020. Again remote bilateral basal ganglia lacunar infarcts. Stable irregular pineal calcifications presumed known mass. Also stable tiny hypodense track adjacent to the right frontal horn presumed from previous ventriculostomy placement. No acute intracranial hemorrhage, abnormal extra-axial fluid collection, or mass effect. Fourth ventricle is midline without hydrocephalus. Bony calvarium intact again with left occipital and right frontal craniotomy. Stable complete opacification of the left frontal and partial opacification left ethmoid sinuses. Mastoid air cells are clear. Impression: 1. Stable bilateral basal ganglia remote lacunar infarcts and postsurgical changes. 2. No new/acute intracranial abnormalities. 3. Again incidental paranasal sinus disease. Comment: Preliminary interpretation made by C. No critical discrepancy.
== END 2021-12-13 14:22 | disposition home or self-care (01) ==
LOC: ED 10:24
DX: R51.9 Headache, unspecified (principal); R94.6 Abnormal results of thyroid function studies; F15.90 Other stimulant use, unspecified, uncomplicated; R56.9 Unspecified convulsions; Z87.898 Personal history of other specified conditions; Z72.0 Tobacco use; I10 Essential (primary) hypertension
CPT/HCPCS: 36000; 36415; 70450; 80053; 80307; 81001; 81025; 82550; 82947; 83605; 84436; 84443; 85025; 85652; 93005; 93041; 94760; 96360; 96374; 99285; G0480; J2405; J3475; A9270-GY

== ENCOUNTER 2023-12-17 15:37 | Emergency (ER) | payer MEDICARE ==
[2023-12-17 16:01] VITALS: PULSE 111; RESP 16; TEMP 97.2
--- NOTE | 2023-12-17 16:02 | ERPHSYRPT ---
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 No hx trauma. Discussed risks/benefit with pt and of CT and they wish to proceed. THis is ordered. Results discussed. discussed pain med / zofran with pt and spouse and and pt will take zofran and defers pain med for now. Timing/Duration: today Quality: fullness, throbbing Head Pain Location: global Severity of Pain-Max: moderate Severity of Pain-Current: moderate Recent Head Trauma: no recent headache/trauma, chronic headaches Associated Symptoms: nausea/vomiting Previous symptoms: different symptoms Allergies/Adverse Reactions: ibuprofen [From Advil] Adverse Reaction (Severe, Verified 12/17/23 15:46) Swelling of Tongue and Lips mri dye Allergy (Intermediate, Uncoded 12/17/23 15:46) Hives Home Medications: No Reportable Medications [No Reported Medications] 12/13/21 [History] Hx Tetanus, Diphtheria Vaccination/Date Given: Yes Hx Influenza Vaccination/Date Given: No Hx Pneumococcal Vaccination/Date Given: No Travel Risk - Vaccine Status Have you recieved a Covid-19 vaccination: No - Review of Systems Constitutional: No Fever, No Chills Eyes: No Symptoms Ears, Nose, & Throat: No Symptoms Respiratory: No Cough, No Dyspnea Cardiac: No Chest Pain, No Edema, No Syncope Abdominal/Gastrointestinal: Nausea, No Abdominal Pain, No Vomiting, No Diarrhea Genitourinary Symptoms: No Dysuria Musculoskeletal: No Back Pain, No Neck Pain Skin: No Rash Neurological: No Dizziness, No Focal Weakness, No Sensory Changes Psychological: No Symptoms Endocrine: No Symptoms Hematologic/Lymphatic: No Symptoms Immunological/Allergic: No Symptoms All Other Systems: Reviewed and Negative - Past Medical History Pertinent Past Medical History: Yes Neurological History: Other (pineal tumor and tunnel) ENT History: No Pertinent History Cardiac History: No Pertinent History, Hypertension Respiratory History: No Pertinent History Endocrine Medical History: No Pertinent History Musculoskeletal History: No Pertinent History GI Medical History: No Pertinent History History: No Pertinent History Psycho-Social History: Anxiety, Depression Female Reproductive Disorders: No Pertinent History Other Medical History: brain tumor. hydrocephalus. papilledema - Past Surgical History Past Surgical History: Yes Neuro Surgical History: Other Cardiac: No Pertinent History Respiratory: No Pertinent History Gastrointestinal: No Pertinent History Genitourinary: No Pertinent History Musculoskeletal: No Pertinent History Female Surgical History: Section, Tubal Ligation Other Surgical History: brain biopsy 2016. brain tumor removal - pineal 2017 - Social History Smoking Status: Current every day smoker How long have you smoked: years Exposure to second hand smoke: Yes Drug Use: methamphetamines Patient Lives Alone: No - Nursing Vital Signs Nursing Vital Signs: Initial Vital Signs Temperature 97.2 F 12/17/23 16:00 Pulse Rate 111 H 12/17/23 16:00 Respiratory Rate 16 12/17/23 16:00 Blood Pressure 158/90 12/17/23 16:00 O2 Sat by Pulse Oximetry 100 12/17/23 16:00 Pain Scale Pain Intensity 7 - Physical Exam General Appearance: no apparent distress Eye Exam: PERRL/EOMI Ears, Nose, Throat Exam: normal ENT inspection, moist mucous membranes Neck Exam: normal inspection, supple, full range of motion, No meningismus Respiratory Exam: normal breath sounds, lungs clear Cardiovascular Exam: regular rate/rhythm, normal heart sounds Gastrointestinal/Abdominal Exam: soft, No tenderness, No distention Back Exam: normal inspection, normal range of motion Mental Status Exam: alert, 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, 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 Exam: normal speech, PERRL, abnormal eye position (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), No facial droop Coordination/Gait Exam: normal cerebellar function Motor/Sensory Exam: no motor deficit, no sensory deficit DTR Exam: bicep (R): 2+, bicep (L): 2+, tricep (R): 2+, tricep (L): 2+, knee (R): 2+, knee (L): 2+, ankle (R): 2+, ankle (L): 2+ Skin Exam: normal color, warm, dry, No rash SpO2 Interpretation: normal SpO2: 100 O2 Delivery: Room Air - Course Nursing assessment & vital signs reviewed: Yes - CT Exams Head CT Interpretation: Tele-radiologist Report, No/Intracranial Hemorrhag, Other (post op changes no mention of hydrocephalus) Ordered Tests: Active Orders 24 hr Category Date Time Status HEAD WITHOUT CONTRAST [CT] Stat Exams 12/17/23 16:01 Completed Medication Summary Discontinued Medications Generic Name Dose Route Start Last Admin Trade Name Awais PRN Reason Stop Dose Admin Ondansetron HCl 4 mg 12/17/23 16:13 12/17/23 16:40 Zofran 4 Mg/Udtablet Orally Disintegrating PO 12/17/23 16:14 4 mg STAT ONE Administration Ondansetron HCl Confirm 12/17/23 16:40 Zofran 4 Mg/Udtablet Orally Disintegrating Administered 12/17/23 16:41 Dose 4 mg .ROUTE .STK-MED ONE - Progress Progress: improved, re-examined Air Movement: good Progress Note: 12/17/23 19:45 Pt s headache has now resolved no visual changes, normal visual hu on exam. Discussed that we have requested more detail with attention to hydrocephalus signs if any on CT from rad, and they are also advised of limitations of CT in detecting such pathology and that further study may be needed. but pt and family prefer to leave and f/u with neuro outpt rather than await this or have further w/u in ER or transfer at this time and have the capacity to make this choice. 12/17/23 19:54 HR also has returned to 90s after resolution of headache symptoms. Blood Culture(s) Obtained: No Antibiotics given: No Counseled pt/family regarding: diagnosis, need for follow-up, rad results Medical Desision Making - Independent Historian Additional History obtained from: Spouse - Discussion of managment Reviewed:: Test results, Need for additional workup Agreed on:: Treatment plan, need for follow-up - Diagnostic Testing Diagnostic test were ordered, analyzed, and reviewed by me: Yes Radiological Interpretation: Reviewed by me, Teleradiologist Report - Risk of complications The pt has a mod risk of morbidity or mortality based on: Need for prescription drug management The pt has a high risk of morbidity or mortality based on: Decision regarding hospitilization or escalation of hosp level of care - Departure Departure Disposition: Home Clinical Impression: headache with hx pineal gland tumor Condition: Good Critical Care Time: No Referrals: DOCTOR,NO FAMILY [Primary Care Provider] - Follow up/PCP as directed Instructions: Headache, Adult (DC) Additional Instructions: followup with your neurologist as planned for more complete evaluation. Although the CT scan did not report hydrocephalus or complications from your tumor this could still be developing and requires this followup. Return meantime or see Dr if fever, vomiting, more headaches, seizure, visual changes, or any other concerns. also see your Dr. for your blood pressure that was some elevated at this visit.
[2023-12-17] MEDS ORDERED: ZOFRAN ODT 4 MG PO ONE (16:13)
[2023-12-17] MEDS ORDERED: ZOFRAN ODT 4 MG ONE (16:40)
--- NOTE | 2023-12-17 18:08 | XRAY ---
CLINICAL HISTORY: headache, hx of brain tumor TECHNIQUE: Axial, multislice, non-contrast CT scan of the brain was performed from the skull base up to the vertex in bony and soft tissue windows with multiplanar reconstructions. COMPARISON: None FINDINGS: There is CSF dense hypodensity seen in the left occipital region. Defects seen in the left occipital bone and right high parietal bones transfixed by metallic plating fixation. No suspicious space-occupying lesions. No intra or extra-axial collections of fresh blood density. Normal size and shape of the ventricles, basal cisterns, and cortical sulci. The basal ganglia, thalamus, and internal capsule appear normal. Brainstem and jay appear normal. No shift of midline structures. No acute calvarial injury. Visualized paranasal sinuses shows mucosal thickening and left maxillary, both ethmoidal and frontal sinuses representing mucosal disease. IMPRESSION: CSF dense hypodensity in the left occipital region probably post surgical changes representing encephalomalacia in keeping with history of prior surgical intervention. Defects seen in the left occipital bone and right high parietal bones transfixed by metallic plating fixation. No suspicious intracranial space-occupying lesions. Please compare with prior reports or obtain mri correlation if needed. No comparison available. No acute hemorrhagic pathology. Contrast-enhanced MRI may be recommended for further evaluation. Electronically Signed by: Fabiano Veronica MD. (12/17/2023 18:03:48 EST)
[2023-12-17 19:14] VITALS: BP 103/74
[2023-12-17 19:49] VITALS: O2SAT 100
== END 2023-12-17 20:06 | disposition home or self-care (01) ==
LOC: ED 15:37
DX: R51.9 Headache, unspecified (principal); Z85.858 Personal history of malignant neoplasm of other endocrine glands; Z28.310 Unvaccinated for COVID-19; Z72.0 Tobacco use
CPT/HCPCS: 36000; 70450; 99283; Q0162